=== PATIENT | female | born 1965 | race Caucasian/White ===

== ENCOUNTER 2020-07-24 17:04 | Emergency (ER) | payer BC, SELFPAY ==
--- NOTE | 2020-07-24 17:10 | ED.FEMALEGU ---
HPI - Female Genitourinary General Chief complaint: Urogenital-Female Stated complaint: kidney infection Time Seen by Provider: 07/24/20 17:12 Source: patient and RN notes reviewed Mode of arrival: ambulatory Limitations: no limitations History of Present Illness HPI Narrative: 54-year-old female presents with concern for 2-day history of dysuria, frequency, urgency, low back pain. She denies nausea, vomiting, fever, body aches, abdominal pain. MD elicited complaint: UTI Related Data Home Medications Medication Instructions Recorded Confirmed spironolactone 100 mg tablet 100 mg PO DAILY 01/07/20 07/24/20 Allergies Allergy/AdvReac Type Severity Reaction Status Date / Time Aminoglycosides Allergy Intermediate RASH Verified 04/29/20 09:34 neomycin Allergy Intermediate RASH Verified 04/29/20 09:34 Sulfa (Sulfonamide Allergy Intermediate HIVES Verified 04/29/20 09:34 Antibiotics) sulfamethoxazole Allergy Intermediate HIVES Verified 04/29/20 09:34 bacitracin Allergy Unknown Other Verified 04/29/20 09:34 hydrocortisone Allergy Unknown Other Verified 04/29/20 09:34 polymyxin B Allergy Unknown Other Verified 04/29/20 09:34 sulfamethizole Allergy Unknown Other Verified 04/29/20 09:34 trimethoprim Allergy Unknown Other Verified 04/29/20 09:34 Review of Systems Review of Systems: Narrative: CONSTITUTIONAL: Denies malaise, chills, sweats, or fever. CARDIOVASCULAR: Denies chest pain, palpitations, or edema. RESPIRATORY: Denies cough or dyspnea. GASTROINTESTINAL: Denies abdominal pain, nausea, vomiting, diarrhea, bloody, or mucous stools. GENITOURINARY: Reports dysuria frequency, urgency, flank pain. Denies hematuria. MUSCULOSKELETAL: Reports bilateral low back pain. Denies myalgia. All systems reviewed & are unremarkable except as noted in HPI and below PMFSH Family History Family History Father Patient's father is Carcinoma of colon Family history of diabetes mellitus in first degree relative Family history of heart disease in male family member before age 55 Sibling Patient's brother is in good health Other Diabetes mellitus Hypertension Social History Social History Smoking status: Never smoker Second hand tobacco smoke exposure: No Alcohol intake: current Gender identity (if verbalized by the patient): Female Comments At time of signature, agree with nursing past medical, surgical, social and family history. There is no relevant family history pertinent to the presenting complaint Exam Narrative: Exam Narrative: GENERAL: Well-appearing, well-nourished, and in no acute distress. HEAD: Normocephalic. EYES: PERRLA, conjunctivae clear. NECK: Supple. No lymphadenopathy CHEST: Clear to auscultation. No respiratory distress. HEART: Regular rate and rhythm. ABDOMEN: Soft, nontender upon palpation, nondistended, normal active bowel sounds, no palpable or pulsatile masses, no guarding. No CVA tenderness SKIN: Warm, dry, no rash. NEURO: Alert and oriented x3. PSYCH: Normal mood and affect Course Course Emergency Course: Patient is aware of diagnosis, understands and agrees to treatment plan. Anticipatory guidance given. Patient agrees to follow-up as directed and is aware of reasons to seek care at the emergency department. Portions of this record may have been created with voice recognition software Vital Signs Vital signs: Vital Signs Temperature 98.3 F 07/24/20 17:15 Pulse Rate 105 H 07/24/20 17:15 Respiratory Rate 07/24/20 17:15 Blood Pressure 162/99 H 07/24/20 17:15 Pulse Oximetry 100 07/24/20 17:15 Temperature 98.3 F 07/24/20 17:15 Pulse Rate 105 H 07/24/20 17:15 Respiratory Rate 07/24/20 17:15 Blood Pressure 162/99 H 07/24/20 17:15 Pulse Oximetry 100 07/24/20 17:15 Reviewed. MDM - Female Genitourinary MDM Narrative Medical
[2020-07-24 17:15] VITALS: BP 162/99; PULSE 105; RESP 20; TEMP 36.8; O2SAT 100
== END 2020-07-24 17:22 | disposition home or self-care (01) ==
PROVIDERS: Emergency Provider Nurse Practitioner; PCP Internal Medicine
DX: R30.0 Dysuria (principal); R35.0 Frequency of micturition; R39.15 Urgency of urination; M54.5 Low back pain
CPT/HCPCS: 81003; 87077; 87086; 87088; 87186; 99213; G0463

== ENCOUNTER → 2020-09-21 12:19 | Outpatient (CLI) | payer BC, SELFPAY ==
[2020-09-21 20:43] LABS: SARS-CoV-2 RNA PCR Negative
== END ==
PROVIDERS: PCP Internal Medicine; Visit Provider Internal Medicine
DX: Z20.822 Contact with and (suspected) exposure to COVID-19 (principal); B34.9 Viral infection, unspecified
CPT/HCPCS: C9803; U0003; U0005

== ENCOUNTER 2020-09-21 16:02 | Emergency (ER) | payer BC, SELFPAY ==
[2020-09-21 17:13] VITALS: BP 159/93; PULSE 120; RESP 18; TEMP 36.9; O2SAT 100
[2020-09-21 17:27] LABS: Basophils Absolute Auto 0.1 K/mm3 (0.0-0.1); Basophils Percent Auto 0.4 % (0.2-1.2); Eosinophils Absolute Auto 0.6 K/mm3 (0-0.3); Eosinophils Percent Auto 4.3 % (0-4.4); Hematocrit 45.4 % (37.0-47.0); Hemoglobin 15.2 g/dL (12.0-15.0); Immature Granulocyte Absolute 0.06 K/mm3 (0.00-0.031); Immature Granulocyte Percent A 0.5 % (0-0.5); Lymphocytes Absolute Auto 0.95 K/mm3 (0.9-3.2); Lymphocytes Percent Auto 7.3 % (18.3-44.2); Mean Corpuscular HGB Conc 33.5 g/dl (32-36); Mean Corpuscular Hemoglobin 30.6 pg (26-34); Mean Corpuscular Volume 91.5 fl (80-100); Monocytes Absolute Auto 0.6 K/mm3 (0.1-0.6); Monocytes Percent Auto 4.2 % (2.6-8.5); Neutrophils Absolute Auto 10.8 K/mm3 (1.3-6.7); Neutrophils Percent Auto 83.3 % (45.5-73.1); Platelet Count Result 226 k/mm3 (150-375); Red Blood Count 4.96 M/mm3 (4.2-5.4); Red Cell Distribution Width 12.8 % (11.5-14.5)
[2020-09-21 17:31] LABS: Add Urine Microscopic? YES; Appearance Urine Cloudy (Clear); Bacteria Urine Trace /hpf; Bilirubin Urine Negative (Negative); Blood Urine Negative (Negative); Color Urine Yellow (Yellow); Glucose Urine UA Negative (Negative); Ketones Urine 1+ mg/dL (Negative); Leukocyte Esterase Ur Trace LEU/UL (Negative); Mucus Urine Few /lpf; Nitrate Urine Negative (Negative); Protein Urine 1+ mg/dL (Negative); Squamous Epithelial Cell Urine Many /hpf (Few); WBC Urine 0-3 /hpf
[2020-09-21 17:41] LABS: Alanine Aminotransferase 90 U/L (4-35); Albumin Level 4.5 g/dL (3.5-5.1); Alkaline Phosphatase 104 U/L (38-126); Anion Gap 8 mmol/L (8-16); Aspartate Amino Transferase 82 U/L (14-36); Bilirubin,Total 0.6 mg/dL (0.2-1.3); Blood Urea Nitrogen 9 mg/dL (7-17); Calcium 9.7 mg/dL (8.4-10.2); Carbon Dioxide 27 mmol/L (22-30); Chloride 103 mmol/L (98-107); Estimated CRCL calculation 65 ml/min; Estimated Glomerular Filt Rate > 60; Glucose 110 mg/dL (65-105); Lipase 22 U/L (23-300); Potassium 4.5 mmol/L (3.4-5.0); Sodium 138 mmol/L (137-145)
[2020-09-21 20:47] VITALS: BP 148/62; PULSE 110; RESP 18; O2SAT 100
--- NOTE | 2020-09-21 21:47 | ED.ABDPAIN ---
HPI - Abdominal Pain General Chief Complaint: Abdominal Pain Stated Complaint: ABD Cramping Time Seen by Provider: 09/21/20 21:18 Source: patient Mode of arrival: ambulatory Limitations: no limitations History of Present Illness HPI narrative: A 55-year-old female comes into the emergency department with complaints of left lower quadrant abdominal pain. Patient states that she has had pain like this before and states that it feels like the last time she had colitis. Patient also notes that she has had a history of diverticulitis and that it feels similar. She states that she is not sure what the differences. She does endorse a couple of episodes of diarrhea. Denies any black or bloody stools. Patient states that her pain is a cramping sensation in the left lower quadrant and does not radiate anywhere. She states that she has had subjective fever and chills but has not actually checked her temperature. Related Data Home Medications Medication Instructions Recorded Confirmed spironolactone 100 mg tablet 100 mg PO DAILY 01/07/20 07/24/20 Allergies Allergy/AdvReac Type Severity Reaction Status Date / Time Aminoglycosides Allergy Intermediate RASH Verified 09/21/20 21:06 neomycin Allergy Intermediate RASH Verified 09/21/20 21:06 Sulfa (Sulfonamide Allergy Intermediate HIVES Verified 09/21/20 21:06 Antibiotics) sulfamethoxazole Allergy Intermediate HIVES Verified 09/21/20 21:06 bacitracin Allergy Unknown Other Verified 09/21/20 21:06 hydrocortisone Allergy Unknown Other Verified 09/21/20 21:06 polymyxin B Allergy Unknown Other Verified 09/21/20 21:06 sulfamethizole Allergy Unknown Other Verified 09/21/20 21:06 trimethoprim Allergy Unknown Other Verified 09/21/20 21:06 Review of Systems Review of Systems: Narrative: CONSTITUTIONAL: Denies fever, chills, or sweats. EYES: Denies visual changes, redness, or discharge. ENT: Denies rhinorrhea, congestion, sore throat, or otalgia. CARDIOVASCULAR: Denies chest pain, palpitations, or edema. RESPIRATORY: Denies cough or dyspnea. GASTROINTESTINAL: Denies nausea, vomiting, or diarrhea. Endorses abdominal pain. GENITOURINARY: Denies dysuria or hematuria. SKIN: Denies rash or itching. MUSCULOSKELETAL: Denies back pain, joint pain, or myalgia. NEUROLOGIC: Denies headache, numbness, dizziness, or weakness. PSYCHIATRIC: Denies anxiety or depression. PMFSH Family History Family History Father Patient's father is Carcinoma of colon Family history of diabetes mellitus in first degree relative Family history of heart disease in male family member before age 55 Sibling Patient's brother is in good health Other Diabetes mellitus Hypertension Social History Social History Smoking status: Never smoker Second hand tobacco smoke exposure: No Alcohol intake: current Gender identity (if verbalized by the patient): Female Exam Narrative: Exam Narrative: GENERAL: Well-appearing, well-nourished, and in no acute distress. HEAD: Normocephalic, atraumatic. EYES: PERRLA and EOMI. ENT: Nares clear, no rhinorrhea or epistaxis. Mucous membranes moist. NECK: Supple. No adenopathy or masses. No carotid bruits or JVD CHEST: Clear to auscultation. No respiratory distress. No wheezes rales or rhonchi HEART: Regular rate and rhythm. No murmur heard. Normal peripheral pulses. ABDOMEN: Soft, nondistended, normal active bowel sounds. Tenderness to palpation in the left lower quadrant. EXTREMITIES: Normal range of motion. No edema. SKIN: Warm, dry, no rash. NEURO: No focal deficits. Alert and oriented x3. PSYCH: Normal mood and affect. Course Reevaluation(s) Reevaluation #1: Patient resting comfortably at this time, provided care update. Inquired to the patient about her pain, she states that it does feel somewhat better. We discussed her work-up and where to go from he
[2020-09-21] MEDS: AMOXICILLIN/CLAVULANATE K 875-125 MG TAB 1 TABLET PO (22:20)
[2020-09-21] MEDS: KETOROLAC 15 MG/ML VIAL (*BKC) IV PUSH (22:20)
[2020-09-21 23:50] VITALS: BP 130/86; PULSE 98; RESP 99; TEMP 36.6; O2SAT 99
== END 2020-09-21 23:53 | disposition home or self-care (01) ==
PROVIDERS: Emergency Medicine; Emergency Provider Emergency Medicine; PCP Internal Medicine
DX: K57.92 Diverticulitis of intestine, part unspecified, without perforation or abscess without bleeding (principal)
CPT/HCPCS: 36415; 80053; 81001; 81025; 83690; 85025; 96374; 99284; A9270; J1885

== ENCOUNTER 2021-02-14 11:48 | Emergency (ER) | payer BC, SELFPAY ==
--- NOTE | ~2021-02-14 | XR_ITS ---
XR hand RT min 3V DATE: 02/14/2021 13:03 INDICATION: Right hand pain TECHNIQUE: 3 views COMPARISON: None FINDINGS: No recent fracture or dislocation, periosteal reaction or bone destruction, erosive change, joint space narrowing. No chondrocalcinosis. IMPRESSION: No significant abnormality Reviewed, dictated and finalized at location A. IMPRESSION: No significant abnormality
[2021-02-14 12:42] VITALS: BP 131/87; PULSE 72; RESP 18; TEMP 36.7; O2SAT 100
--- NOTE | 2021-02-14 13:45 | ED.UPPEXIN ---
HPI - Extremity Injury (Upper) General Chief Complaint: Extremity Injury, Upper Stated Complaint: Swollen finger on Rt hand Source: patient and RN notes reviewed Mode of arrival: ambulatory History of Present Illness HPI narrative: This is a 55-year-old woman that presented to urgent care with a right swollen ring finger. According to patient approximately 3 to 4 days ago she developed swelling and tenderness to her right ring finger patient denies any injury. She also notes that she has skin rash which she believes is poison jasmin that she obtained from her pets rubbing jumping on her. This rash appears to be in her upper and lower extremities she did note that she was using hydrocortisone it is noted that she has allergy to it she does deny that allergy. The patient denies SOB, CP, palpitation, extremity numbness, lightheadedness, dizziness, constipation, diarrhea, chills, or fever. MD complaint: injury to: right Related Data Home Medications Medication Instructions Recorded Confirmed spironolactone 100 mg tablet 100 mg PO DAILY 01/07/20 11/11/20 Allergies Allergy/AdvReac Type Severity Reaction Status Date / Time Aminoglycosides Allergy Intermediate RASH Verified 11/11/20 10:40 neomycin Allergy Intermediate RASH Verified 11/11/20 10:40 Sulfa (Sulfonamide Allergy Intermediate HIVES Verified 11/11/20 10:40 Antibiotics) sulfamethoxazole Allergy Intermediate HIVES Verified 11/11/20 10:40 bacitracin Allergy Unknown Other Verified 11/11/20 10:40 hydrocortisone Allergy Unknown Other Verified 11/11/20 10:40 polymyxin B Allergy Unknown Other Verified 11/11/20 10:40 sulfamethizole Allergy Unknown Other Verified 11/11/20 10:40 trimethoprim Allergy Unknown Other Verified 11/11/20 10:40 Review of Systems Review of Systems: Narrative: A 14 organ system Review of Systems was performed and pertinent positives included in the HPI, otherwise remaining ROS is negative. All systems reviewed & are unremarkable except as noted in HPI and below PMFSH Family History Family History Father Patient's father is Carcinoma of colon Family history of diabetes mellitus in first degree relative Family history of heart disease in male family member before age 55 Sibling Patient's brother is in good health Other Diabetes mellitus Hypertension Social History Social History Smoking status: Never smoker Second hand tobacco smoke exposure: No Alcohol intake: current Gender identity (if verbalized by the patient): Female Exam Narrative: Exam Narrative: GENERAL: This is a well-nourished, well-developed patient, in no apparent distress. HEAD: normocephalic, atraumatic. EYES: PERRL. Sclera clear/white. Vision is grossly intact. EARS: External ears normal, auditory canals clear and without drainage, TMs normal without perforation. Hearing grossly intact. NOSE: External nose normal with no obvious nasal discharge, nares without redness, no rhinorrhea. THROAT: Mucous membranes moist, posterior pharynx clear. NECK: Neck supple, non-tender without lymphadenopathy, masses or thyromegaly. CARDIOVASCULAR: Regular rate and rhythm without murmurs, gallops, or rubs. RESPIRATORY: Clear to auscultation. Breath sounds equal bilaterally. No wheezes, rales, or rhonchi. GASTROINTESTINAL: Abdomen soft, non-tender, nondistended. Bowel sounds are active. No hepato-splenomegaly, or palpable masses. No guarding. SKIN: Several erythematous swollen areas to the upper and lower extremity NEURO: awake, alert, and oriented to person, place and time. There were no obvious focal neurologic abnormalities. Steady gait EXTREMITIES: Normal range of motion. Right ring finger edematous and tender to touch full range of motion. No calf tenderness. Negative Homans sign bilaterally. BACK: Nontender without deformity or crepitance. No flank tenderness. Cour
== END 2021-02-14 14:02 | disposition home or self-care (01) ==
PROVIDERS: Emergency Provider Nurse Practitioner; PCP Internal Medicine
DX: R21 Rash and other nonspecific skin eruption (principal); M10.9 Gout, unspecified
CPT/HCPCS: 73130; 99213; G0463

== ENCOUNTER → 2021-05-31 13:09 | Outpatient (CLI) | payer BC, SELFPAY ==
--- NOTE | ~2021-05-31 | MM_ITS ---
EXAMINATION: MM screening indra BI w gregoria HISTORY: Screening TECHNIQUE: Craniocaudal and mediolateral oblique 3-D tomosynthesis images were obtained and synthetic 2-D images were generated. CAD analysis was submitted and interpreted. COMPARISON: Comparison to multiple prior studies sequentially, with oldest reviewed study dated 01/2014. BREAST PARENCHYMAL COMPOSITION: There are scattered areas of fibroglandular density. FINDINGS: Bilateral breast asymmetries are stable. There is no evidence of suspicious mass, calcifica tion, or architectural distortion to suggest malignancy in either breast. There has been no suspiciou s interval change. IMPRESSION: 1. No mammographic evidence of malignancy. 2. Recommend routine screening mammography in one year. BI-RADS Category 2: Benign finding(s). Reviewed, dictated and finalized at location A.
== END ==
PROVIDERS: PCP Internal Medicine; Visit Provider Obstetrics & Gynecology
DX: Z12.31 Encounter for screening mammogram for malignant neoplasm of breast (principal)
CPT/HCPCS: 77063; 77067

== ENCOUNTER 2021-09-06 13:15 | Emergency (ER) | payer BC, SELFPAY ==
--- NOTE | ~2021-09-06 | XR_ITS ---
XR chest 2V DATE: 09/06/2021 13:41 INDICATION: Productive cough for one week TECHNIQUE: 2 views COMPARISON: None FINDINGS: Prominent reverse S shaped thoracolumbar scoliosis. No pulmonary infiltrate or consolidation, pleural effusion or pulmonary vascular congestion or pneumo thorax is detected. Normal heart size. No hilar or mediastinal enlargement. Small hiatal hernia is suggested. IMPRESSION: No active cardiac pulmonary disease Prominent reverse S shaped thoracic and lumbar scoliosis Small hiatal hernia Reviewed, dictated and finalized at location A. [employer]
--- NOTE | 2021-09-06 13:23 | ED.URI ---
HPI - URI/Sore Throat General Chief Complaint: Upper Respiratory Infection Stated Complaint: cough Source: patient, RN notes reviewed and old records reviewed Mode of arrival: ambulatory Limitations: no limitations History of Present Illness HPI Narrative: 55 yo female presents to the [facility] with C/O a cough. Patient states that she has had a cough for over a week. Has tried [id number], DayQuil, NyQuil, Mucinex, throat lozenges, products with no relief. Denies fevers, chest pain, abdominal pain. MD elicited complaint: cough Related Data Home Medications Medication Instructions Recorded Confirmed spironolactone 100 mg tablet 100 mg PO DAILY 01/07/20 09/06/21 Allergies Allergy/AdvReac Type Severity Reaction Status Date / Time Aminoglycosides Allergy Intermediate RASH Verified 07/04/21 14:31 neomycin Allergy Intermediate RASH Verified 07/04/21 14:31 Sulfa (Sulfonamide Allergy Intermediate HIVES Verified 09/06/21 13:33 Antibiotics) sulfamethoxazole Allergy Intermediate HIVES Verified 07/04/21 14:31 bacitracin Allergy Mild Rash Verified 07/04/21 14:31 hydrocortisone Allergy Mild Rash Verified 07/04/21 14:31 polymyxin B Allergy Mild Rash Verified 07/04/21 14:31 sulfamethizole Allergy Mild Rash Verified 07/04/21 14:31 trimethoprim Allergy Mild Rash Verified 07/04/21 14:31 Review of Systems Review of Systems: All systems reviewed & are unremarkable except as noted in HPI and below Constitutional: Constitutional: Reports no additional constitutional complaints, Denies chills, Denies fever(s) and Denies headache(s) Eyes: Eyes: Reports no additional eye complaints ENT: Reports as per HPI, Denies vertigo, Denies dizziness, Denies headache(s), Denies nasal congestion and Denies sore throat Cardiovascular: Cardiovascular: Reports no additional cardiovascular complaints, Denies chest pain, Denies syncope, Denies rapid heart rate and Denies dyspnea Respiratory: Respiratory: Reports as per HPI, Reports cough, Denies dyspnea and Denies wheezing Gastrointestinal: Gastrointestinal: Reports no additional gastrointestinal complaints, Denies abdominal pain, Denies diarrhea, Denies nausea and Denies vomiting Musculoskeletal: Musculoskeletal: Reports no additional musculoskeletal complaints and Denies numbness Integumentary/Breasts: Skin/Breast: Reports system reviewed and no additional complaints, except as docu Neurologic: Reports system reviewed and no additional complaints, except as documented, Denies vertigo, Denies dizziness, Denies syncope, Denies headache(s), Denies focal weakness and Denies numbness Psychiatric: Psychiatric: Reports no additional psychiatric complaints Allergic/Immunologic: Allergic/Immunologic: Reports no additional allergic/immunologic complaints and Denies wheezing PMFSH Past Medical History Medical History (Updated 09/06/21 @ 13:35 by Yuki Church) Anxiety and depression Hyperlipidemia Family History Family History Father Patient's father is Carcinoma of colon Family history of diabetes mellitus in first degree relative Family history of heart disease in male family member before age 55 Sibling Patient's brother is in good health Other Diabetes mellitus Hypertension Social History Social History Smoking status: Former smoker Second hand tobacco smoke exposure: No Alcohol intake: current Gender identity (if verbalized by the patient): Female Comments At the time of my signature, I reviewed and agree with the nursing past medical, surgical, social, and family history. There is no relevant family history pertinent to the patient complaint. Exam Const: General: cooperative, no acute distress, well developed, alert and ill appearing acutely (Mild) Nutritional Appearance: well nourished Orientation/consciousness: patient oriented x3 Limitations: no limitations
[2021-09-06 13:25] VITALS: BP 139/92; PULSE 108; RESP 18; TEMP 37; O2SAT 100
== END 2021-09-06 14:00 | disposition home or self-care (01) ==
PROVIDERS: Emergency Provider Nurse Practitioner; PCP Internal Medicine
DX: J40 Bronchitis, not specified as acute or chronic (principal); Z87.891 Personal history of nicotine dependence; E78.5 Hyperlipidemia, unspecified
CPT/HCPCS: 71046; 99213; G0463

== ENCOUNTER 2022-04-09 00:24 | Day surgery (SDC) | payer BC, SELFPAY ==
[2022-03-27 09:00] VITALS: BMI 25.9
--- NOTE | 2022-04-09 06:43 | WPDANESEPPF ---
Anes - Initial Pre Proc Eval Procedure: Operation Date: 04/09/22 08:30 Proposed Procedures p Screening Colonoscopy - Len Chávez MD Date/Time: 04/09/22 06:43 Surgeon: Len Chávez MD Pre Op Diagnosis: neoplasm, hx of colon polyps, family hx colon ca Patient Data Age: 56 Gender: F Height: 1.68 m Weight: 73 kg Allergies Allergy/AdvReac Type Severity Reaction Status Date / Time Aminoglycosides Allergy Intermediate RASH Verified 04/09/22 07:33 neomycin Allergy Intermediate RASH Verified 04/09/22 07:33 Sulfa (Sulfonamide Allergy Intermediate HIVES Verified 04/09/22 07:33 Antibiotics) sulfamethoxazole Allergy Intermediate HIVES Verified 04/09/22 07:33 bacitracin Allergy Mild Rash Verified 04/09/22 07:33 hydrocortisone Allergy Mild Rash Verified 04/09/22 07:33 polymyxin B Allergy Mild Rash Verified 04/09/22 07:33 sulfamethizole Allergy Mild Rash Verified 04/09/22 07:33 trimethoprim Allergy Mild Rash Verified 04/09/22 07:33 Home Medications Medication Instructions Recorded Confirmed Type atorvastatin 20 mg tablet 20 mg PO DAILY #90 tabs 10/26/21 03/27/22 Rx spironolactone 100 mg tablet 100 mg PO DAILY #90 tabs 11/22/21 03/27/22 Rx venlafaxine 75 mg capsule,extended 75 mg PO DAILY #90 caps 03/05/22 03/27/22 Rx release 24 hr Patient hx anesthesia problems: none Family hx anesthesia problems: none Results Review: All pre-operative results and documents have been reviewed as part of the pre-operative evaluation. [facility] Past Medical History Medical History Anxiety and depression Hyperlipidemia Family History Family History Father Patient's father is Carcinoma of colon Family history of diabetes mellitus in first degree relative Family history of heart disease in male family member before age 55 Sibling Patient's brother is in good health Other Diabetes mellitus Hypertension Social History Social History Smoking status: Never smoker Second hand tobacco smoke exposure: No Alcohol intake: never Substance use: never Substance use type: does not use Living arrangements: with family Gender identity (if verbalized by the patient): Female Spiritual care concerns: No Anes - Eval Final PreProcedure Day of Procedure 04/09/22 06:43 Patient weight: overweight Heart: regular rate and rhythm Lungs: clear to auscultation Airway: Mallampati scale class II Neurological: alert and oriented Last oral intake: >/= 8 hours ASA classification: II Emergent: no Anesthetic plan: proceed Anesthesia type and monitoring: general GIVS and standard monitoring Results Review: All pre-operative results and documents have been reviewed as part of the pre-operative evaluation. Informed Consent: The patient's anesthetic plan and its attendant risks and benefits were discussed with the patient/family/POA. Questions were solicited and answers provided to the satisfaction of the patient/family/POA.
[2022-04-09 07:34] VITALS: BP 146/81; PULSE 82; RESP 17; TEMP 36.6; O2SAT 100
[2022-04-09] MEDS: LACTATED RINGERS 1,000 ML 150 ML IV CONT (07:45)
--- NOTE | 2022-04-09 07:56 | PM.IMHP ---
H&P: HPI History of Present Illness Date/Time: 04/09/22 07:56 Chief Complaint: Family history of colon cancer, personal history of colon polyps. Narrative: This is a 56-year-old white female patient presents for screening colonoscopy. Family history is significant that her father had colon cancer. Patient herself has a prior history colon polyps. Patient's most recent colonoscopy was several years ago. she reports his current weight appetite and bowel movements are normal. She denies abdominal pain. She has had no bleeding. She presents today for screening colonoscopy. Review of Systems Review of Systems: Review of systems noncontributory. [facility] Past Medical History Medical History Anxiety and depression Hyperlipidemia Family History Family History Father Patient's father is Carcinoma of colon Family history of diabetes mellitus in first degree relative Family history of heart disease in male family member before age 55 Sibling Patient's brother is in good health Other Diabetes mellitus Hypertension Social History Social History Smoking status: Never smoker Second hand tobacco smoke exposure: No Alcohol intake: never Substance use: never Substance use type: does not use Living arrangements: with family Gender identity (if verbalized by the patient): Female Spiritual care concerns: No Meds Home Medications and Allergies Home Medications Medication Instructions Recorded Confirmed Type atorvastatin 20 mg tablet 20 mg PO DAILY #90 tabs 10/26/21 03/27/22 Rx spironolactone 100 mg tablet 100 mg PO DAILY #90 tabs 11/22/21 03/27/22 Rx venlafaxine 75 mg capsule,extended 75 mg PO DAILY #90 caps 03/05/22 03/27/22 Rx release 24 hr Allergies Allergy/AdvReac Type Severity Reaction Status Date / Time Aminoglycosides Allergy Intermediate RASH Verified 04/09/22 07:33 neomycin Allergy Intermediate RASH Verified 04/09/22 07:33 Sulfa (Sulfonamide Allergy Intermediate HIVES Verified 04/09/22 07:33 Antibiotics) sulfamethoxazole Allergy Intermediate HIVES Verified 04/09/22 07:33 bacitracin Allergy Mild Rash Verified 04/09/22 07:33 hydrocortisone Allergy Mild Rash Verified 04/09/22 07:33 polymyxin B Allergy Mild Rash Verified 04/09/22 07:33 sulfamethizole Allergy Mild Rash Verified 04/09/22 07:33 trimethoprim Allergy Mild Rash Verified 04/09/22 07:33 Vital Signs Vital Signs - 24 hr 04/09/22 07:34 Temperature 97.8 F Pulse Rate 82 Respiratory Rate 17 Blood Pressure 146/81 H Pulse Oximetry 100 Oxygen Delivery Room Air Exam Narrative: ysical exam reveals patient to be alert. Vital signs stable. HEENT exam is unremarkable. Patient is anicteric. Lungs are clear to auscultation and percussion. Heart is without murmur or extra sounds. Abdominal exam bowel sounds present soft nontender with no organomegaly. Digital external rectal exam is normal. Assessment and Plan Assessment and plan (1) History of colon polyps: Code(s): Z86.010 - Personal history of colonic polyps Status: Acute Assessment and Plan: Patient has had a prior history of colon polyps. Would recommend follow-up colonoscopy at 5 year intervals. Further recommendations may be given after colonoscopy. (2) Family history of colon cancer in father: Code(s): Z80.0 - Family history of malignant neoplasm of digestive organs Status: Acute Assessment and Plan: Patient's father had colon cancer. Plan for surveillance colonoscopy at 5 year intervals in the future.
[2022-04-09 08:47] VITALS: BP 120/86; PULSE 92; RESP 28; O2SAT 100
[2022-04-09 08:57] VITALS: BP 118/72; PULSE 79; RESP 19; O2SAT 100
[2022-04-09 09:07] VITALS: BP 119/88; PULSE 70; RESP 18; O2SAT 100
== END 2022-04-09 09:18 | disposition home or self-care (01) ==
PROVIDERS: PCP Internal Medicine; Visit Provider Internal Medicine Gastroenterology
PROC: 0DJD8ZZ Inspection of Lower Intestinal Tract, Via Natural or Artificial Opening Endoscopic (ICD-10-PCS; CPT 45378; principal; 2022-04-09 08:30)
DX: Z12.11 Encounter for screening for malignant neoplasm of colon (principal); K64.8 Other hemorrhoids; K57.30 Diverticulosis of large intestine without perforation or abscess without bleeding; Z80.0 Family history of malignant neoplasm of digestive organs; F41.9 Anxiety disorder, unspecified; F32.A Depression, unspecified; E78.5 Hyperlipidemia, unspecified
CPT/HCPCS: 45378; J2405; J2704; J7120

== ENCOUNTER 2023-04-15 11:38 | Inpatient (IN) | payer MEDICAID, SELFPAY ==
--- NOTE | ~2023-04-15 | CT_ITS ---
CT of the Abdomen and Pelvis: Indication: Abdominal pain Technique: 2.5 mm axial scans were obtained through the abdomen and pelvis following intravenous adm inistration of 100 cc of Omnipaque 350. Dose reduction technique was used on this scan by utilizing a utomated exposure control and iterative reconstruction technique. The dose-length product (DLP) was 4 45.22 mGy-cm. COMPARISON: 12/10/2011 Findings: Scans through the lung bases-a left basilar scarring or atelectasis. Adfuw-te-ragtotke hia yessica hernia present. The liver, spleen, pancreas, adrenals and kidneys are within normal limits. Small gallstones are pres ent. No evidence of aortic aneurysm. No lymphadenopathy. No bowel obstruction or bowel wall thickening. There is no evidence to suggest acute appendicitis. Images through the pelvis were performed. Urinary bladder unremarkable. No adnexal mass seen. Impression: Cholelithiasis. Small to moderate hiatal hernia. Reviewed, dictated and finalized at [facility]. Impression: Cholelithiasis. Small to moderate hiatal hernia.
--- NOTE | ~2023-04-15 | NM_ITS ---
EXAMINATION: NM hepatobiliary wo pharm DATE: 04/18/2023 10:25 INDICATION: Cholelithiasis and abdominal pain. COMPARISON: None. TECHNIQUE: I 0.5 mCi Tc-99m mebrofenin (Choletec) was administered intravenously. Scintigraphic imag es of the abdomen were obtained for one hour. At the 1 hour time point, the patient drank 8 oz Ensure , and imaging was continued for 60 minutes. Gallbladder ejection fraction was calculated by the techn ologist. FINDINGS: There is normal clearance of radiotracer from the blood pool. There is homogeneous tracer u ptake by the liver. Activity progresses to the bowel and gallbladder. The gallbladder ejection fract ion (GBEF) is 21%. Note that with this technique, normal GBEF >= 33%. IMPRESSION: 1. Decreased gallbladder ejection fraction of 21% consistent with gallbladder dysfunction or chronic cholecystitis in the appropriate clinical setting. Reviewed, dictated and finalized at location A.
--- NOTE | ~2023-04-15 | US_ITS ---
EXAMINATION: US abdomen limited DATE: 04/15/2023 13:29 INDICATION: Epigastric abdominal pain TECHNIQUE: Multiple grayscale and Doppler ultrasound images of the abdomen were obtained. COMPARISON: CT dated 12/10/2011 FINDINGS: The majority pancreas is obscured. The small portion visualized pancreatic body appears normal. Liver has normal echogenicity and contour, with a smooth surface. No liver lesion identified. No intrahepa tic biliary duct dilation suspected. Portal venous flow was seen in the hepatopetal, normal direction and has normal Doppler waveform. There are few echogenic and shadowing gallstones in the dependent a spect of the otherwise normal-appearing gallbladder. Sonographic Badillo sign was reported as negative by the pump tester.The common bile duct measures 4-5 mm diameter which is within normal limits. IMPRESSION: 1. Cholelithiasis. No gallbladder dilation, wall thickening or sonographic Baidllo's sign to suggest a cute cholecystitis. Reviewed, dictated and finalized at location A. IMPRESSION: 1. Cholelithiasis. No gallbladder dilation, wall thickening or sonographic Murp hy's sign to suggest acute cholecystitis.
--- NOTE | ~2023-04-15 | XR_ITS ---
EXAMINATION: XR chest 2V DATE: 04/15/2023 13:50 INDICATION: Epigastric abdominal pain TECHNIQUE: PA and lateral views of the chest are obtained. COMPARISON: 09/06/2021 FINDINGS: The lungs are free of acute opacities. No pleural effusion or pneumothorax. The heart size is normal. There is a small sliding hiatal hernia. There is mild thoracic spondylosis. Thoracic dextr oscoliosis is noted. IMPRESSION: 1. Small sliding hiatal hernia. Reviewed, dictated and finalized at location B.
[2023-04-15 11:50] VITALS: BP 130/84; PULSE 85; RESP 20; TEMP 36.6; O2SAT 100
[2023-04-15 12:11] LABS: Basophils Absolute Auto 0.1 K/mm3 (0.0-0.1); Basophils Percent Auto 0.7 % (0.2-1.2); Eosinophils Absolute Auto 0.2 K/mm3 (0-0.3); Eosinophils Percent Auto 2.8 % (0-4.4); Hematocrit 37.5 % (37.0-47.0); Hemoglobin 12.3 g/dL (12.0-15.0); Immature Granulocyte Absolute 0.02 K/mm3 (0.00-0.031); Immature Granulocyte Percent A 0.3 % (0-0.5); Lymphocytes Absolute Auto 2.08 K/mm3 (0.9-3.2); Lymphocytes Percent Auto 28.7 % (18.3-44.2); Mean Corpuscular HGB Conc 32.8 g/dl (32-36); Mean Corpuscular Volume 91.5 fl (80-100); Mean Platelet Volume 8.7 fl (7.4-10.4); Monocytes Absolute Auto 0.5 K/mm3 (0.1-0.6); Monocytes Percent Auto 7.3 % (2.6-8.5); Neutrophils Absolute Auto 4.4 K/mm3 (1.3-6.7); Neutrophils Percent Auto 60.2 % (45.5-73.1); Platelet Count Result 178 k/mm3 (150-375); Red Cell Distribution Width 12.6 % (11.5-14.5); White Blood Count 7.2 K/mm3 (4.5-10.0)
[2023-04-15 12:21] LABS: Alanine Aminotransferase 69 U/L (6-35); Albumin Level 4.1 g/dL (3.5-5.1); Alkaline Phosphatase 134 U/L (38-126); Anion Gap 6 mmol/L (8-16); Aspartate Amino Transferase 40 U/L (14-36); Bilirubin,Total 0.5 mg/dL (0.2-1.3); Blood Urea Nitrogen 4 mg/dL (7-17); Carbon Dioxide 30 mmol/L (22-30); Chloride 99 mmol/L (98-107); Estimated CRCL calculation 82 ml/min; Estimated Glomerular Filt Rate > 60; Glucose 101 mg/dL (65-110); Lipase 36 U/L (23-300); Potassium 3.8 mmol/L (3.4-5.0); Sodium 135 mmol/L (137-145)
[2023-04-15 12:23] LABS: Appearance Urine Cloudy (Clear); Bacteria Urine None Seen /hpf; Bilirubin Urine Negative (Negative); Blood Urine Negative (Negative); Color Urine Yellow (Yellow); Glucose Urine UA Negative (Negative); Ketones Urine 1+ mg/dL (Negative); Leukocyte Esterase Ur 2+ LEU/UL (Negative); Nitrate Urine Negative (Negative); Non Pathogenic Casts 0-2; Protein Urine Negative (Negative); RBC Urine 0-2 /hpf (0-2); Specific Grav Ur 1.018 (1.001-1.035); Squamous Epithelial Cell Urine Occasional /hpf (Few); WBC Urine 51-100 /hpf
[2023-04-15 12:25] LABS: Atypical Lymphocytes Present; Platelet Estimate Adequate (Adequate); Schistocytes None Seen (NORMAL)
[2023-04-15 12:28] LABS: Add Urine Microscopic? YES
--- NOTE | 2023-04-15 12:35 | ECG_ITS ---
Measurements Intervals [place] Rate: 75 P: 31 PA: 137 QRS: 11 QRSD: 99 T: 56 QT: 366 QTc: 411 Interpretive Statements SINUS RHYTHM BORDERLINE T WAVE ABNORMALITY- ANTERIOR LEADS BASELINE ARTIFACT- II, III, AVF BORDERLINE ECG NO PREVIOUS ECG AVAILABLE FOR COMPARISON Electronically Signed On 04-15-2023 12:52:01 CDT by Ziyad Grace D.O.
[2023-04-15] MEDS: FAMOTIDINE 20 MG/2 ML VIAL IV PUSH (13:04)
[2023-04-15] MEDS: BELLADONNA ALK/PHENOB ELIX 10 ML, MAG HYDROX/ALUMINUM HYD/SIMETH 30 ML, LIDOCAINE HCL 2... PO (13:04)
[2023-04-15 13:23] LABS: Lactic Acid Reflex 0.8 mmol/L (0.7-2.0)
[2023-04-15 13:35] LABS: Troponin I < 0.012 ng/mL (0.000-0.034)
[2023-04-15] MEDS: MORPHINE SULFATE (*CRX) 4 MG/ML INJ IV PUSH ×2 (14:09→15:37)
--- NOTE | 2023-04-15 15:23 | ED.ABDPAIN ---
HPI - Abdominal Pain General Chief Complaint: Abdominal Pain Stated Complaint: Abd pain Time Seen by Provider: 04/15/23 12:15 History of Present Illness HPI narrative: This is a 57-year-old female, with past history of hyperlipidemia and hypertension, status post gastric bypass, who presents emergency department complaining of epigastric abdominal pain for the past 4 days. He describes the pain as dull, constant, rated 6-7/10 without radiation. She denies known aggravating or alleviating factors. The patient states she was seen twice previously with imaging and labs done without an obvious cause. Related Data Home Medications Medication Instructions Recorded Confirmed atorvastatin 20 mg tablet 20 mg PO QNOON 04/15/23 04/15/23 spironolactone 100 mg tablet 100 mg PO QNOON 04/15/23 04/15/23 venlafaxine 75 mg capsule,extended 75 mg PO QNOON 04/15/23 04/15/23 release 24 hr Allergies Allergy/AdvReac Type Severity Reaction Status Date / Time Aminoglycosides Allergy Intermediate RASH Verified 04/15/23 17:46 neomycin Allergy Intermediate RASH Verified 04/15/23 17:46 Sulfa (Sulfonamide Allergy Intermediate HIVES Verified 04/15/23 17:46 Antibiotics) sulfamethoxazole Allergy Intermediate HIVES Verified 04/15/23 17:46 bacitracin Allergy Mild Rash Verified 04/15/23 17:46 hydrocortisone Allergy Mild Rash Verified 04/15/23 17:46 nitrofurantoin Allergy Mild Nausea Verified 04/15/23 17:46 [From Macrobid] polymyxin B Allergy Mild Rash Verified 04/15/23 17:46 sulfamethizole Allergy Mild Rash Verified 04/15/23 17:46 trimethoprim Allergy Mild Rash Verified 04/15/23 17:46 Review of Systems Review of Systems: CONSTITUTIONAL: Denies fever, chills, or sweats. CARDIOVASCULAR: Denies chest pain, palpitations, or edema. RESPIRATORY: Denies cough or dyspnea. GASTROINTESTINAL: Epigastric abdominal pain denies nausea, vomiting, or diarrhea. GENITOURINARY: Denies dysuria or hematuria. SKIN: Denies rash or itching. MUSCULOSKELETAL: Denies back pain, joint pain, or myalgia. NEUROLOGIC: Denies headache, numbness, dizziness, or weakness. PSYCHIATRIC: Denies anxiety or depression. [facility] Past Medical History Medical History (Updated 04/15/23 @ 19:52 by Malorie Anglin PA-C) Anemia Anxiety and depression Diverticulitis Hiatal hernia Hyperlipidemia Surgical History Surgical History (Updated 04/15/23 @ 19:50 by Malorie Anglin PA-C) History of tubal ligation Status post repair of paraesophageal diaphragmatic hernia Family History Family History Father Family history of heart disease in male family member before age 55 Family history of diabetes mellitus in first degree relative Patient's father is Carcinoma of colon Sibling Patient's brother is in good health Fibromyalgia Social History Social History (Updated 04/15/23 @ 19:51 by Malorie Anglin PA-C) Social History: Surrogate medical decision maker: Marce Blue, mother. Code status: Full code. Smoking status: Never smoker Second hand tobacco smoke exposure: No Alcohol intake: current Alcohol use details: Alcohol on the weekends, sometimes in excess. Substance use: never Substance use type: does not use Lack of Transportation: No Lack of Food: Never True Current Housing: I Have Housing Concerned About Future Housing: No Difficulty Paying Gas/Electric Bills: No Difficulty Paying for Meds: No Currently Unemployed: No Education: Associate Degree Difficulty w/ Childcare or Family Care: No Living arrangements: with family Spiritual care concerns: No Exam Narrative: GENERAL: Well-developed, well-nourished, appears uncomfortable HEAD: Normocephalic, atraumatic. EYES: PERRLA and EOMI. ENT: Nares clear, no rhinorrhea or epistaxis. Mucous membranes moist. Oropharynx without tonsillar hypertrophy exudate or other lesions. CHEST: Clear to auscultation
[2023-04-15 17:00] VITALS: PULSE 68; RESP 18; O2SAT 97
[2023-04-15 17:27] VITALS: BP 145/85; PULSE 93; RESP 18; TEMP 35.9; O2SAT 100
[2023-04-15] MEDS: SODIUM CHLORIDE 0.9% IV 1,000 ML 125 ML IV CONT (17:35)
[2023-04-15 17:42] VITALS: BMI 25.4
--- NOTE | 2023-04-15 17:44 | ADMGEN ---
This patient, Anabelle Chan, was admitted to [facility] Surg Room 300-01. Patient/family oriented to hospital policies and general routines including ID bracelet, bed and alarms, visiting hours, pain management, procedures, bathroom and other care routines, personal items, smoking policy, room service/diet, and visiting hours. Information on how to activate the Rapid Response Team has been discussed. Patient/Family are encouraged to report perceived risks to care and to ask questions if they do not understand what they are told or what they should do.
--- NOTE | 2023-04-15 17:55 | PM.IMHP ---
H&P: HPI History of Present Illness Date/Time: 04/15/23 16:30 Chief Complaint: Abdominal pain. Narrative: This is a 57-year-old female with history of periesophageal hernia repair requiring 4 separate surgery due to complications, diverticulitis, hyperlipidemia, depression, and anxiety who presented to the emergency department via private vehicle from home for evaluation of abdominal pain. The patient provides the following history. For the last 4 days or so she has had pain in the upper abdomen and epigastric region associated with nausea. She describes a constant, dull but significant aching discomfort without significant radiation. She has not noticed any aggravating or alleviating factors and states that is not made better or worse with food. Her appetite has not been great however and she has not had much to eat for 3 days. Her last bowel movement was on Saturday and was normal for her. She also reports a subjective fever in addition to nausea. She has not had any vomiting. She was seen emergency department [facility] last night at which time she reportedly had a negative workup including a negative CT scan. Her symptoms have not improved and she came into this facility for evaluation. Vital signs were stable on arrival. Labs were pretty unremarkable with the only outlier is being a sodium of 135, AST 40, ALT 69, and alkaline phosphatase 134. Urine was positive for 1+ ketones, 2+ leukocyte esterase, 51 to 100 WBCs; no bacteria were seen on microscopy. Right upper quadrant ultrasound showed cholelithiasis without other concerning findings. CT of the abdomen and pelvis showed cholelithiasis and a small to moderate hiatal hernia. In the ED she was treated with famotidine, morphine, ondansetron, and a GI cocktail. Unfortunately she continues to have ongoing cramping pain and she is being admitted in this setting for further evaluation. She has not had a fever for couple of days and denies headache, sinus congestion, cough, hematemesis, melena, and hematochezia. She has no history of peptic ulcers. Her symptoms are not similar to GERD or diverticulitis. She has known cholelithiasis but they have never caused her any problems. She drinks 1 cup of coffee a day. She drinks alcohol on the weekends, sometimes heavily. Of note she is currently on Keflex for urinary tract infection. Review of Systems Review of Systems: Twelve systems were reviewed and are negative except for as per HPI. [facility] Past Medical History Medical History (Updated 04/16/23 @ 16:20 by Malorie Anglin PA-C) Anemia Anxiety and depression Diverticulitis Hiatal hernia Hyperlipidemia Surgical History Surgical History History of tubal ligation Status post repair of paraesophageal diaphragmatic hernia paraesophageal hernia repair with placement of gastrostomy tube in 2011. Patient reports a total of 5 surgeries in regards to her hiatal hernia. She had a laparoscopic hiatal hernia repair with Sophia fundoplication in 2016 at [place] complicated by acute recurrence requiring takeback for repair of disruption of her hiatal closure. Family History Family History Father Family history of heart disease in male family member before age 55 Family history of diabetes mellitus in first degree relative Patient's father is Carcinoma of colon Sibling Patient's brother is in good health Fibromyalgia Social History Social History Social History: Surrogate medical decision maker: Marce Blue, mother. Code status: Full code. Smoking status: Never smoker Second hand tobacco smoke exposure: No Alcohol intake: current Alcohol use details: Alcohol on the weekends, sometimes in excess. Substance use: never Substance use type: does not use Lack of Transportation: No [place]
[2023-04-15] MEDS: VENLAFAXINE HCL XR 75 MG CAP.ER.24H PO (18:20)
[2023-04-15] MEDS: MORPHINE SULFATE (*CRX) 2 MG/ML INJ IV PUSH (20:26)
[2023-04-15] MEDS: PANTOPRAZOLE SODIUM IV 40 MG VIAL IV PUSH (20:44)
[2023-04-15 22:00] VITALS: BP 152/82; PULSE 95; RESP 18; TEMP 37.8; O2SAT 99
[2023-04-16] MEDS: MORPHINE SULFATE (*CRX) 2 MG/ML INJ IV PUSH ×5 (00:28→20:27)
[2023-04-16] MEDS: SODIUM CHLORIDE 0.9% IV 1,000 ML 125 ML IV CONT (00:32)
[2023-04-16 06:00] VITALS: BP 136/67; PULSE 83; RESP 16; TEMP 37.2; O2SAT 96
[2023-04-16 06:36] LABS: Basophils Absolute Auto 0.1 K/mm3 (0.0-0.1); Basophils Percent Auto 0.7 % (0.2-1.2); Eosinophils Absolute Auto 0.1 K/mm3 (0-0.3); Eosinophils Percent Auto 1.4 % (0-4.4); Hematocrit 35.9 % (37.0-47.0); Hemoglobin 11.8 g/dL (12.0-15.0); Immature Granulocyte Absolute 0.04 K/mm3 (0.00-0.031); Immature Granulocyte Percent A 0.5 % (0-0.5); Lymphocytes Absolute Auto 2.61 K/mm3 (0.9-3.2); Lymphocytes Percent Auto 31.3 % (18.3-44.2); Mean Corpuscular HGB Conc 32.9 g/dl (32-36); Mean Corpuscular Hemoglobin 30.3 pg (26-34); Mean Corpuscular Volume 92.3 fl (80-100); Monocytes Absolute Auto 0.6 K/mm3 (0.1-0.6); Monocytes Percent Auto 7.7 % (2.6-8.5); Neutrophils Absolute Auto 4.9 K/mm3 (1.3-6.7); Neutrophils Percent Auto 58.4 % (45.5-73.1); Platelet Count Result 187 k/mm3 (150-375); Red Blood Count 3.89 M/mm3 (4.2-5.4); Red Cell Distribution Width 12.6 % (11.5-14.5); White Blood Count 8.4 K/mm3 (4.5-10.0)
[2023-04-16 06:52] LABS: Alanine Aminotransferase 51 U/L (6-35); Albumin Level 3.6 g/dL (3.5-5.1); Alkaline Phosphatase 122 U/L (38-126); Anion Gap 7 mmol/L (8-16); Aspartate Amino Transferase 29 U/L (14-36); Bilirubin,Total 0.4 mg/dL (0.2-1.3); Blood Urea Nitrogen 3 mg/dL (7-17); Calcium 8.6 mg/dL (8.4-10.2); Carbon Dioxide 27 mmol/L (22-30); Chloride 102 mmol/L (98-107); Estimated CRCL calculation 82 ml/min; Estimated Glomerular Filt Rate > 60; Glucose 103 mg/dL (65-110); Potassium 4.1 mmol/L (3.4-5.0); Sodium 136 mmol/L (137-145)
[2023-04-16 08:25] VITALS: PULSE 94; O2SAT 99
[2023-04-16] MEDS: CEPHALEXIN 500 MG CAPSULE PO ×2 (08:49→20:29)
[2023-04-16] MEDS: PANTOPRAZOLE SODIUM IV 40 MG VIAL IV PUSH ×2 (08:49→20:29)
[2023-04-16] MEDS: VENLAFAXINE HCL XR 75 MG CAP.ER.24H PO (11:20)
[2023-04-16 11:42] LABS: Alanine Aminotransferase 54 U/L (6-35); Alkaline Phosphatase 138 U/L (38-126); Anion Gap 9 mmol/L (8-16); Aspartate Amino Transferase 37 U/L (14-36); Bilirubin,Total 0.6 mg/dL (0.2-1.3); Blood Urea Nitrogen 3 mg/dL (7-17); Calcium 9.2 mg/dL (8.4-10.2); Carbon Dioxide 28 mmol/L (22-30); Chloride 100 mmol/L (98-107); Estimated CRCL calculation 82 ml/min; Estimated Glomerular Filt Rate > 60; Glucose 98 mg/dL (65-110); Lipase 52 U/L (23-300); Potassium 3.6 mmol/L (3.4-5.0); Sodium 137 mmol/L (137-145)
--- NOTE | 2023-04-16 12:09 | PM.IMPN ---
Progress Note: A&P Assessment and Plan (1) Intractable abdominal pain: Code(s): R10.9 - Unspecified abdominal pain Status: Acute Assessment and Plan: epigastric in nature. Seems like pancreatitis though pancreatic enzymes and imaging are unremarkable for this. Gallstones are present. No signs of acute cholecystitis. However, given patient's level of discomfort gastroenterology and General surgery have been consulted. (2) Anxiety and depression: Code(s): F41.9 - Anxiety disorder, unspecified; F32.A - Depression, unspecified Status: Acute Assessment and Plan: Patient very anxious, moderately dysthymic, somewhat uncooperative with plan of care because she states I am just too frustrated. Patient has already threatened to leave against medical advice because she did not feel like she was being tended to enough. (3) Elevated LFTs: Code(s): R79.89 - Other specified abnormal findings of blood chemistry Status: Acute Assessment and Plan: minimal elevations that of improved since admission (4) Hyperlipidemia: Code(s): E78.5 - Hyperlipidemia, unspecified Status: Acute Assessment and Plan: Continue home medications (5) Abnormal urinalysis: Code(s): R82.90 - Unspecified abnormal findings in urine Status: Acute Assessment and Plan: Patient treated for urinary tract infection with ceftriaxone. Urine culture pending. Plan Pain control, GI and general surgery consults. Consideration for functional abdominal pain Time Spent With Patient Time with patient: 25 - 35 minutes Subjective Date/time seen: 04/16/23 12:09 Interval history: Patient was admitted for epigastric pain that she states is constant but comes and goes in waves. Prior hiatal hernia surgery which required additional surgeries. Patient reports that morphine is helping her pain but it is wearing off before next dose is available. Patient's mother is at bedside very concerned the patient continues to receive morphine. Review of Systems Review of Systems: Twelve systems were reviewed and are negative except for as per HPI. All systems reviewed & are unremarkable except as noted in HPI and below Exam Narrative: General: Well-developed, nontoxic-appearing female in mild discomfort. Weight: 71.7 kg. BMI: 25.5. HEENT: PERRL, EOMI. Sclera anicteric. Normal mucous membranes. Oropharynx clear. Neck: Supple. No JVD Respiratory: Lungs are clear to auscultation bilaterally. Cardiovascular: Regular rate and rhythm with S1-S2. Gastrointestinal: Abdomen is soft and nondistended with positive bowel sounds. She is tender to palpation throughout the upper abdomen, more so in the epigastric region. Mild guarding but no rebound tenderness. Skin: Warm and dry. No rash or lesions on limited exam. Extremities: No cyanosis, clubbing, or edema. Radial and pedal pulses intact. Neurological: Alert. Cranial nerves 2-12 are grossly intact. No gross focal deficits to casual conversation. Psychiatric: Anxious mood and dysthymic Objective Data Vital Signs Vital Signs: Vital Signs - 24 hr 04/15/23 17:00 04/15/23 17:27 04/15/23 18:24 Temperature 35.9 C L Pulse Rate 68 93 Respiratory Rate 18 18 Blood Pressure 145/85 H Pulse Oximetry 97 100 Oxygen Delivery Room Air 04/15/23 22:00 04/16/23 06:00 04/16/23 08:25 Temperature 37.8 C H 37.2 C Pulse Rate 95 83 94 Respiratory Rate 18 16 Blood Pressure 152/82 H 136/67 Pulse Oximetry 99 96 99 Oxygen Delivery Room Air Intake/Output Intake/Output: Intake & Output 04/13/23 04/14/23 04/15/23 04/16/23 23:59 23:59 23:59 23:59 Intake Total 100 Balance 100 Meds/Results Medications: Active Medications Generic Name Dose Route Start Last Admin Trade Name Freq PRN Reason Stop Dose Admin Hydrocodone Bitart/Acetaminophen 1 tab 04/16/23 11:12 Hydrocodone/Acetaminophen (*Crx) 5-325 M
[2023-04-16] MEDS: HYDROcodone/acetaminophen (*CRX) 5-325 MG TABLET 1 TAB PO ×2 (12:29→22:40)
--- NOTE | 2023-04-16 12:34 | PM.CNGS ---
Assessment and Plan Assessment and plan (1) Cholelithiasis: Code(s): K80.20 - Calculus of gallbladder without cholecystitis without obstruction Status: Acute Assessment and Plan: Patient presents with epigastric abdominal pain x [address] and ultrasound show small gallstones in the dependent aspect of the gallbladder, but no findings to suggest acute cholecystitis. WBC count has been normal. Her presentation and exam are atypical for gallbladder disease. She is primarily complaining of epigastric abdominal pain and does not have any tenderness in the RUQ on exam. We would agree with GI consultation for possible EGD. We will also order a HIDA scan for tomorrow to further evaluate for acute cholecystitis. Further plan depending on these results. (2) Abdominal pain, epigastric: Code(s): R10.13 - Epigastric pain Status: Acute Assessment and Plan: Unclear etiology. See plan above. GI also consulted. (3) Elevated LFTs: Code(s): R79.89 - Other specified abnormal findings of blood chemistry Status: Acute Assessment and Plan: Mildly elevated liver enzymes on admission, trending down. Continue to monitor labs. (4) Abnormal urinalysis: Code(s): R82.90 - Unspecified abnormal findings in urine Status: Acute Assessment and Plan: Recently treated for urinary tract infection when going to the ER at [facility]. UA on this admission abnormal, but she is asymptomatic. Cephalexin that was prescribed from the previous ER visit was continued now. Urine culture pending. Management per Hospitalist. Plan I have discussed the patient's case and plan of care with Dr. Anderson. Thank you for allowing us to see the patient in consultation and we will continue to follow along with you. History of Present Illness Consult details Consult date: 04/16/23 Reason for consult: gallstones Requesting physician: Jhoan Fox, ALLY Narrative: This is a 57-year-old woman who we have been asked to see in surgical consultation for cholelithiasis and epigastric abdominal pain. The patient woke 5 days ago with generalized malaise. She reports chills, headache, and also noticed some mild epigastric abdominal pain. She had not eaten that morning and cannot recall eating anything other than toast the night before. She felt somewhat better the next day, but continued to have epigastric abdominal pain. Her pain remained constant through the weekend and progressively worsened. She has not eaten since her abdominal pain started, as she has had a poor appetite and nausea as well. Denies any vomiting or diarrhea. She does report feeling constipated with her last bowel movement about 4 days ago. Her pain became severe on Saturday and ended up bringing her in to [facility] ER for evaluation. She reports having a CT of the abdomen and pelvis that was reportedly negative. She was diagnosed with a urinary tract infection and discharged from the ER with oral antibiotics and pain medication. She denies any dysuria, pelvic pain, urinary frequency, or urgency. Her pain continued and she went to the ER in [place] on Saturday. They reportedly repeated a CT scan of the abdomen that showed cholelithiasis, but no other findings. She was discharged home and continued to have abdominal pain, therefore she presented to [facility] ER for evaluation yesterday. Labs showed a normal white blood cell count, total bilirubin 0.5, AST 40, ALT 69, alk-phos 134, troponin negative, lipase normal. Right upper quadrant abdominal ultrasound showed cholelithiasis with no gallbladder wall thickening, dilation, or sonographic Badillo sign to suggest acute cholecystitis. Chest x-ray showed small sliding hiatal hernia. CT of the abdomen and pelvis showed cholelithiasis and small to moderate hiatal hernia. She was admitted and is currently NPO. GI was consulted. Our service has also been consulted for epigastric abdominal pain and cholelithi
--- NOTE | 2023-04-16 13:06 | PM.IMPN ---
Subjective Date/time seen: 04/16/23 13:06 Objective Data Vital Signs Vital Signs: Vital Signs - 24 hr 04/15/23 17:00 04/15/23 17:27 04/15/23 18:24 Temperature 35.9 C L Pulse Rate 68 93 Respiratory Rate 18 18 Blood Pressure 145/85 H Pulse Oximetry 97 100 Oxygen Delivery Room Air 04/15/23 22:00 04/16/23 06:00 04/16/23 08:25 Temperature 37.8 C H 37.2 C Pulse Rate 95 83 94 Respiratory Rate 18 16 Blood Pressure 152/82 H 136/67 Pulse Oximetry 99 96 99 Oxygen Delivery Room Air Intake/Output Intake/Output: Intake & Output 04/13/23 04/14/23 04/15/23 04/16/23 23:59 23:59 23:59 23:59 Intake Total 100 Balance 100 Meds/Results Medications: Active Medications Generic Name Dose Route Start Last Admin Trade Name Freq PRN Reason Stop Dose Admin Hydrocodone Bitart/Acetaminophen 1 tab 04/16/23 11:12 04/16/23 12:29 Hydrocodone/Acetaminophen (*Crx) 5-325 Mg Tablet PO 1 tab Q4H PRN Administration Pain Rated 6 or Greater Atorvastatin Calcium 20 mg 04/16/23 12:00 04/16/23 11:25 Atorvastatin 20 Mg Tablet PO Not Given DAILY@1200 ROLANDO Cephalexin HCl 500 mg 04/15/23 21:00 04/16/23 08:49 Cephalexin 500 Mg Capsule PO 500 mg Q12HR ROLANDO Administration Morphine Sulfate 2 mg 04/15/23 19:55 04/16/23 08:49 Morphine Sulfate (*Crx) 2 Mg/Ml Inj IV PUSH 2 mg Q4H PRN Administration Pain Rated 7-10 Ondansetron HCl 4 mg 04/15/23 15:42 Ondansetron Inj 4 Mg/2 Ml Vial IV PUSH Q4H PRN Nausea Pantoprazole Sodium 40 mg 04/15/23 21:00 04/16/23 08:49 Pantoprazole Sodium Iv 40 Mg Vial IV PUSH 40 mg Q12HR ROLANDO Administration Spironolactone 100 mg 04/16/23 12:00 04/16/23 11:26 Spironolactone 50 Mg Tablet PO Not Given DAILY@NOON [facility] Venlafaxine HCl 75 mg 04/16/23 12:00 04/16/23 11:20 Venlafaxine Hcl Xr 75 Mg Cap.Er.24h PO 75 mg DAILY@NOON ROLANDO Administration Radiology Results: ITS Impressions Abdomen Ultrasound 04/15/23 13:44 IMPRESSION: 1. Cholelithiasis. No gallbladder dilation, wall thickening or sonographic Badillo's sign to suggest acute cholecystitis. Chest X-Ray 04/15/23 13:57 IMPRESSION: 1. Small sliding hiatal hernia. Abdomen/Pelvis CT 04/15/23 14:30 Impression: Cholelithiasis. Small to moderate hiatal hernia. Labs Labs: Laboratory Results - last 24 hr 04/15/23 04/15/23 04/16/23 12:05 13:07 05:39 WBC 8.4 RBC 3.89 L Hgb 11.8 L Hct 35.9 L MCV 92.3 MCH 30.3 MCHC 32.9 RDW 12.6 Plt Count 187 MPV 9.0 Immature Gran % (Auto) 0.5 Neut % (Auto) 58.4 Lymph % (Auto) 31.3 [place] % (Auto) 7.7 Eos % (Auto) 1.4 Baso % (Auto) 0.7 Lymph # (Auto) 2.61 [place] # (Auto) 0.6 Eos # (Auto) 0.1 Baso # (Auto) 0.1 Abs Immat Gran (auto) 0.04 H Absolute Neuts (auto) 4.9 Absolute Nucleated RBC 0.0 Nucleated RBC % 0.0 Sodium 136 L Potassium 4.1 Chloride 102 Carbon Dioxide 27 Anion Gap 7 L BUN 3 L Creatinine 0.60 L Estim Creat Clear Calc 82 Estimated GFR > 60 Glucose 103 Lactic Acid 0.8 Calcium 8.6 Magnesium 2.0 Total Bilirubin 0.4 Direct Bilirubin 0.0 AST 29 ALT 51 H Alkaline Phosphatase 122 Troponin I < 0.012 Total Protein 7.0 Albumin 3.6 Lipase 04/16/23 11:26 WBC RBC Hgb Hct MCV MCH MCHC RDW Plt Count MPV Immature Gran % (Auto) Neut % (Auto) Lymph % (Auto) [place] % (Auto) Eos % (Auto) Baso % (Auto) Lymph # (Auto) [place] # (Auto) Eos # (Auto) Baso # (Auto) Abs Immat Gran (auto) Absolute Neuts (auto) Absolute Nucleated RBC Nucleated RBC % Sodium 137 Potassium 3.6 Chloride 100 Carbon Dioxide 28 Anion Gap 9 BUN 3 L Creatinine 0.60 L Estim Creat Clear Calc 82 Estimated GFR > 60 Glucose 98 Lactic Acid Calcium 9.2 Magnesium Total Bilirubin 0.6 Direct Bilirubin AST 3
[2023-04-16 13:47] VITALS: BP 145/82; PULSE 73; RESP 16; TEMP 36.6; O2SAT 100
--- NOTE | 2023-04-16 13:48 | WPDGICN ---
Assessment and Plan Assessment and plan (1) Abdominal pain, epigastric: Code(s): R10.13 - Epigastric pain Status: Acute Assessment and Plan: persistent for almost 5 days she had complications after hiatal hernia repair in 2011 that required multiple interventions will assess with egd to assess if ulcer, esophagitis, etc (2) Nausea: Code(s): R11.0 - Nausea Status: Acute Assessment and Plan: medical care (3) Elevated LFTs: Code(s): R79.89 - Other specified abnormal findings of blood chemistry Status: Acute Assessment and Plan: mild elevated, normal bili ultrasound showed cholelithiasis (4) Hiatal hernia: Code(s): K44.9 - Diaphragmatic hernia without obstruction or gangrene Status: Acute GI Consult Note Consult date/time: 04/16/23 13:48 Reason for consult: epigastric pain HPI: Anabelle Chan is a 57 year old female with history of complicated paraesophageal hernia repair that required gastrostomy tube and after removal had non-healing wound in 2011, eventually she went to [facility] where required 3 more interventions because disruption of hiatal closure and apparently had infection and for the most part since then had upper GI symptom relatively under control. She is here with almost persistent epigastric pain for last 5 days progressively worse, also nausea but no vomiting. She is worried because previous history, morphine here helped with pain, normally does not use ppi. CT scan reviewed, Cholelithiasis. Small to moderate hiatal hernia. Transaminases 30-50, normal bili. Her last colonoscopy 2021 with diverticulosis. Review of Systems Review of Systems: All systems reviewed & are unremarkable except as noted in HPI and below Constitutional: Constitutional: Denies chills Eyes: Eyes: Denies blurry vision ENT: Reports Normal hearing present Cardiovascular: Cardiovascular: Reports no additional cardiovascular complaints, Denies chest pain and Denies leg edema Respiratory: Respiratory: Reports no additional respiratory complaints, Denies cough and Denies dyspnea Gastrointestinal: Gastrointestinal: Reports abdominal pain, Denies melena, Denies bloating, Reports constipation, Denies diarrhea, Reports nausea and Denies vomiting Genitourinary: Genitourinary: Denies dysuria Musculoskeletal: Musculoskeletal: Reports no additional musculoskeletal complaints, Denies abnormal gait and Denies joint swelling Integumentary/Breasts: Skin/Breast: Reports system reviewed and no additional complaints, except as docu and Denies jaundice Neurologic: Reports system reviewed and no additional complaints, except as documented, Denies headache(s), Denies focal weakness, Denies numbness and Denies tingling Psychiatric: Psychiatric: Denies behavioral changes [facility] Past Medical History Medical History (Updated 04/16/23 @ 13:59 by Bryce Reyes MD) Anemia Anxiety and depression Diverticulitis Hiatal hernia Hiatal hernia Hyperlipidemia Nausea Surgical History Surgical History History of tubal ligation Status post repair of paraesophageal diaphragmatic hernia paraesophageal hernia repair with placement of gastrostomy tube in 2011. Patient reports a total of 5 surgeries in regards to her hiatal hernia. She had a laparoscopic hiatal hernia repair with Sophia fundoplication in 2016 at [place] complicated by acute recurrence requiring takeback for repair of disruption of her hiatal closure. Family History Family History Father Family history of heart disease in male family member before age 55 Family history of diabetes mellitus in first degree relative Patient's father is Carcinoma of colon Sibling Patient's brother is in good health Fibromyalgia Social History Social History So
[2023-04-16 22:00] VITALS: BP 173/95; PULSE 93; RESP 16; TEMP 35.6; O2SAT 100
[2023-04-17] VITALS (8 sets, daily range): BP systolic 128–180; BP diastolic 82–98; PULSE 77–104; RESP 15–20; TEMP 36.3–37; O2SAT 99–100
[2023-04-17] MEDS: MORPHINE SULFATE (*CRX) 2 MG/ML INJ IV PUSH ×2 (05:00→15:39)
[2023-04-17 06:35] LABS: Basophils Absolute Auto 0.1 K/mm3 (0.0-0.1); Basophils Percent Auto 0.6 % (0.2-1.2); Eosinophils Absolute Auto 0.2 K/mm3 (0-0.3); Eosinophils Percent Auto 1.9 % (0-4.4); Hemoglobin 12.6 g/dL (12.0-15.0); Immature Granulocyte Absolute 0.03 K/mm3 (0.00-0.031); Immature Granulocyte Percent A 0.4 % (0-0.5); Lymphocytes Absolute Auto 2.49 K/mm3 (0.9-3.2); Lymphocytes Percent Auto 31.9 % (18.3-44.2); Mean Corpuscular HGB Conc 33.2 g/dl (32-36); Mean Corpuscular Volume 90.5 fl (80-100); Mean Platelet Volume 8.8 fl (7.4-10.4); Monocytes Absolute Auto 0.5 K/mm3 (0.1-0.6); Monocytes Percent Auto 6.8 % (2.6-8.5); Neutrophils Absolute Auto 4.6 K/mm3 (1.3-6.7); Neutrophils Percent Auto 58.4 % (45.5-73.1); Platelet Count Result 222 k/mm3 (150-375); Red Cell Distribution Width 12.3 % (11.5-14.5); White Blood Count 7.8 K/mm3 (4.5-10.0)
[2023-04-17 06:47] LABS: Alanine Aminotransferase 66 U/L (6-35); Albumin Level 4.1 g/dL (3.5-5.1); Alkaline Phosphatase 132 U/L (38-126); Anion Gap 8 mmol/L (8-16); Aspartate Amino Transferase 46 U/L (14-36); Bilirubin,Total 0.6 mg/dL (0.2-1.3); Blood Urea Nitrogen 5 mg/dL (7-17); Calcium 9.3 mg/dL (8.4-10.2); Carbon Dioxide 29 mmol/L (22-30); Chloride 98 mmol/L (98-107); Estimated CRCL calculation 97 ml/min; Estimated Glomerular Filt Rate > 60; Glucose 107 mg/dL (65-110); Sodium 135 mmol/L (137-145)
[2023-04-17] MEDS: CEPHALEXIN 500 MG CAPSULE PO (08:08)
[2023-04-17] MEDS: HYDROcodone/acetaminophen (*CRX) 5-325 MG TABLET 1 TAB PO (08:08)
[2023-04-17] MEDS: PANTOPRAZOLE SODIUM IV 40 MG VIAL IV PUSH ×2 (08:09→22:00)
--- NOTE | 2023-04-17 08:15 | PM.IMPN ---
Progress Note: A&P Assessment and Plan (1) Intractable abdominal pain: Code(s): R10.9 - Unspecified abdominal pain Status: Acute Assessment and Plan: Abdominal pain for 5+ days, epigastric in nature US with gallstones but no signs of acute cholecystitis Surgery consulted, HIDA scan ordered for 04/18 GI consulted, EGD today findings of erosive gastritis (2) Anxiety and depression: Code(s): F41.9 - Anxiety disorder, unspecified; F32.A - Depression, unspecified Status: Acute Assessment and Plan: Patient very anxious, moderately dysthymic, somewhat uncooperative with plan of care because she states I am just too frustrated. Patient has already threatened to leave against medical advice because she did not feel like she was being tended to enough. (3) Hyperlipidemia: Code(s): E78.5 - Hyperlipidemia, unspecified Status: Acute Assessment and Plan: Continue home medications Lipid panel for tomorrow (4) Elevated LFTs: Code(s): R79.89 - Other specified abnormal findings of blood chemistry Status: Acute Assessment and Plan: minimal elevations that of improved since admission AST 46, ALT 66, Alkaline phosphatase 132 (5) Abnormal urinalysis: Code(s): R82.90 - Unspecified abnormal findings in urine Status: Acute Assessment and Plan: Patient treated for urinary tract infection with ceftriaxone. Urine culture negative, no growth. Stopping antibiotics. Plan Advance diet to low fiber, bland today GI and general surgery consults. Pending HIDA scan 04/18. Subjective Date/time seen: 04/17/23 08:15 Interval history: HPI obtained from chart, This is a 57-year-old female with history of periesophageal hernia repair requiring 4 separate surgery due to complications, diverticulitis, hyperlipidemia, depression, and anxiety who presented to the emergency department via private vehicle from home for evaluation of abdominal pain. The patient provides the following history. For the last 4 days or so she has had pain in the upper abdomen and epigastric region associated with nausea. She describes a constant, dull but significant aching discomfort without significant radiation.? She has not noticed any aggravating or alleviating factors and states that is not made better or worse with food.? Her appetite has not been great however and she has not had much to eat for 3 days.? Her last bowel movement was on Saturday and was normal for her. She also reports a subjective fever in addition to nausea.? She has not had any vomiting. She was seen emergency department [facility] last night at which time she reportedly had a negative workup including a negative CT scan. Her symptoms have not improved and she came into this facility for evaluation. Vital signs were stable on arrival. Labs were pretty unremarkable with the only outlier is being a sodium of 135, AST 40, ALT 69, and alkaline phosphatase 134. Urine was positive for 1+ ketones, 2+ leukocyte esterase, 51 to 100 WBCs; no bacteria were seen on microscopy. Right upper quadrant ultrasound showed cholelithiasis without other concerning findings. CT of the abdomen and pelvis showed cholelithiasis and a small to moderate hiatal hernia. In the ED she was treated with famotidine, morphine, ondansetron, and a GI cocktail. Unfortunately she continues to have ongoing cramping pain and she is being admitted in this setting for further evaluation. She has not had a fever for couple of days and denies headache, sinus congestion, cough, hematemesis, melena, and hematochezia. She has no history of peptic ulcers. Her symptoms are not similar to GERD or diverticulitis. She has known cholelithiasis but they have never caused her any problems. She drinks 1 cup of coffee a day. She drinks alcohol on the weekends, sometimes heavily. Of note she is currently on Keflex for urinary tract infection. Interval history:
--- NOTE | 2023-04-17 09:09 | PM.PNGS ---
Progress Note: A&P Assessment and Plan (1) Cholelithiasis: Code(s): K80.20 - Calculus of gallbladder without cholecystitis without obstruction Status: Acute Assessment and Plan: Continues to have epigastric abdominal pain. Initial imaging suggested cholelithiasis without any findings of cholecystitis. WBC count still normal. HIDA scan ordered for this morning but she is unable to have the test done prior to the EGD due to receiving narcotics, and can't have it done after the EGD. Will await EGD results and HIDA could be done tomorrow morning. (2) Abdominal pain, epigastric: Code(s): R10.13 - Epigastric pain Status: Acute Assessment and Plan: Unclear etiology. See plan above. EGD today. May add IV Ibuprofen as another option for pain overnight while waiting for HIDA scan tomorrow if her EGD is negative. (3) Elevated LFTs: Code(s): R79.89 - Other specified abnormal findings of blood chemistry Status: Acute Assessment and Plan: LFTs up slightly today, continue to monitor labs Plan I have discussed the patient's case and plan of care with Dr. Anderson. Subjective Subjective Date/Time Seen: 04/17/23 09:09 Patient reports: no new complaints, still having pain and afebrile Interval history: Patient seen this morning. She denies any changes in her symptoms. She is still having epigastric abdominal pain that is been constant without any relief in the pain medication she is getting. She did receive IV morphine around 5:00 a.m. this morning and [place] around 8:00 a.m.. She is scheduled for an EGD today. Review of Systems Review of Systems: ROS unchanged Exam Const: General: no acute distress and uncomfortable (Due to abdominal pain) Orientation/consciousness: patient oriented x3 GI: Inspection: non-distended GI Palp: Yes Soft to palpation, Yes Tenderness to palpation present (GI) (Tenderness only in epigastric area, no right upper quadrant tenderness), No Guarding due to palpation present (GI) and No Rebound tenderness present Auscultation: normal bowel sounds Objective Data Vital Signs Vital Signs: Vital Signs - 24 hr 04/16/23 13:47 04/16/23 22:00 04/17/23 06:00 Temperature 97.8 F 96.1 F L 97.3 F L Pulse Rate 73 93 77 Respiratory Rate 16 16 20 Blood Pressure 145/82 H 173/95 H 180/90 H Pulse Oximetry 100 100 100 Intake/Output Intake/Output: Intake & Output 04/14/23 04/15/23 04/16/23 04/17/23 23:59 23:59 23:59 23:59 Intake Total 100 520 50 Balance 100 520 50 Meds/Results Medications: Active Medications Generic Name Dose Route Start Last Admin Trade Name Freq PRN Reason Stop Dose Admin Hydrocodone Bitart/Acetaminophen 1 tab 04/16/23 11:12 04/17/23 08:08 Hydrocodone/Acetaminophen (*Crx) 5-325 Mg Tablet PO 1 tab Q4H PRN Administration Pain Rated 6 or Greater Atorvastatin Calcium 20 mg 04/16/23 12:00 04/16/23 11:25 Atorvastatin 20 Mg Tablet PO Not Given DAILY@[email or web address] [place] [address] Hydralazine HCl 10 mg 04/17/23 08:30 Hydralazine Hcl 20 Mg/Ml Vial IV PUSH Q6HR PRN Blood Pressure - High Morphine Sulfate 2 mg 04/15/23 19:55 04/17/23 05:00 Morphine Sulfate (*Crx) 2 Mg/Ml Inj IV PUSH 2 mg Q4H PRN Administration Pain Rated 7-10 Ondansetron HCl 4 mg 04/15/23 15:42 Ondansetron Inj 4 Mg/2 Ml Vial IV PUSH Q4H PRN Nausea Pantoprazole Sodium 40 mg 04/15/23 21:00 04/17/23 08:09 Pantoprazole Sodium Iv 40 Mg Vial IV PUSH 40 mg Q12HR [facility] Administration Spironolactone 100 mg 04/16/23 12:00 04/16/23 11:26 Spironolactone 50 Mg Tablet PO Not Given [email or web address] [facility] Venlafaxine HCl 75 mg 04/16/23 12:00 04/16/23 11:20 Venlafaxine Hcl Xr 75 Mg Cap.Er.24h PO 75 mg DAILY@[email or web address] Administration Radiology Results: ITS Impressions Abdomen Ultrasound 04/15/23 13:44 IMPRESSION: 1. Cholelithiasis. No gallbladder dilation, wall thickening or sonograp
[2023-04-17] MEDS: LACTATED RINGERS 1,000 ML 150 ML IV CONT (11:04)
--- NOTE | 2023-04-17 11:54 | WPDANESEPPF ---
Anes - Initial Pre Proc Eval Procedure: Operation Date: 04/17/23 13:15 Proposed Procedures p Esophagogastroduodenoscopy - Bryce Reyes MD Date/Time: 04/17/23 11:54 Surgeon: Popeye Staley MD Pre Op Diagnosis: Intractable Abdominal Pain Patient Data Age: 57 Gender: F Height: 1.68 m Weight: 71.7 kg Last Vital Signs Temp 97.8 F 04/17/23 11:06 Pulse 91 04/17/23 11:06 Resp 20 04/17/23 11:06 BP 150/84 H 04/17/23 11:06 Pulse Ox 99 04/17/23 11:06 O2 Del Method Room Air 04/17/23 11:06 Allergies Allergy/AdvReac Type Severity Reaction Status Date / Time Aminoglycosides Allergy Intermediate RASH Verified 04/17/23 11:05 neomycin Allergy Intermediate RASH Verified 04/17/23 11:05 Sulfa (Sulfonamide Allergy Intermediate HIVES Verified 04/17/23 11:05 Antibiotics) sulfamethoxazole Allergy Intermediate HIVES Verified 04/17/23 11:05 bacitracin Allergy Mild Rash Verified 04/17/23 11:05 hydrocortisone Allergy Mild Rash Verified 04/17/23 11:05 polymyxin B Allergy Mild Rash Verified 04/17/23 11:05 sulfamethizole Allergy Mild Rash Verified 04/17/23 11:05 trimethoprim Allergy Mild Rash Verified 04/17/23 11:05 nitrofurantoin AdvReac Mild Nausea Verified 04/17/23 11:05 [From Macrobid] Home Medications Medication Instructions Recorded Confirmed Type atorvastatin 20 mg tablet 20 mg PO QNOON 04/15/23 04/15/23 History spironolactone 100 mg tablet 100 mg PO QNOON 04/15/23 04/15/23 History venlafaxine 75 mg capsule,extended 75 mg PO QNOON 04/15/23 04/15/23 History release 24 hr Laboratory Tests 04/17/23 06:06 WBC 7.8 K/mm3 (4.5-10.0) RBC 4.20 M/mm3 (4.2-5.4) Hgb 12.6 g/dL (12.0-15.0) Hct 38.0 % (37.0-47.0) MCV 90.5 fl (80-100) MCH 30.0 pg (26-34) MCHC 33.2 g/dl (32-36) RDW 12.3 % (11.5-14.5) Plt Count 222 k/mm3 (150-375) MPV 8.8 fl (7.4-10.4) Immature Gran % (Auto) 0.4 % (0-0.5) Neut % (Auto) 58.4 % (45.5-73.1) Lymph % (Auto) 31.9 % (18.3-44.2) [place] % (Auto) 6.8 % (2.6-8.5) Eos % (Auto) 1.9 % (0-4.4) Baso % (Auto) 0.6 % (0.2-1.2) Lymph # (Auto) 2.49 K/mm3 (0.9-3.2) [place] # (Auto) 0.5 K/mm3 (0.1-0.6) Eos # (Auto) 0.2 K/mm3 (0-0.3) Baso # (Auto) 0.1 K/mm3 (0.0-0.1) Abs Immat Gran (auto) 0.03 K/mm3 (0.00-0.031) Absolute Neuts (auto) 4.6 K/mm3 (1.3-6.7) Absolute Nucleated RBC 0.0 K/mm3 (0.0-0.012) Nucleated RBC % 0.0 % (0.0-0.2) Sodium 135 L mmol/L (137-145) Potassium 4.0 mmol/L (3.4-5.0) Chloride 98 mmol/L (98-107) Carbon Dioxide 29 mmol/L (22-30) Anion Gap 8 mmol/L (8-16) BUN 5 L mg/dL (7-17) Creatinine 0.50 L mg/dL (0.7-1.0) Estim Creat Clear Calc 97 ml/min Estimated GFR > 60 (59 - ) Glucose 107 mg/dL (65-110) Calcium 9.3 mg/dL (8.4-10.2) Total Bilirubin 0.6 mg/dL (0.2-1.3) AST 46 H U/L (14-36) ALT 66 H U/L (6-35) Alkaline Phosphatase 132 H U/L (38-126) Total Protein 7.0 g/dL (6.3-8.2) Albumin 4.1 g/dL (3.5-5.1) Patient hx anesthesia problems: none Family hx anesthesia problems: none Results Review: All pre-operative results and documents have been reviewed as part of the pre-operative evaluation. [facility] Past Medical History Medical History (Updated 04/16/23 @ 16:20 by Malorie Anglin PA-C) Anemia Anxiety and depression Diverticulitis Hiatal hernia Hyperlipidemia Surgical History Surgical History History of tubal ligation Status post repair of paraesophageal diaphragmatic hernia paraesophageal hernia repair with placement of gastrostomy tube in 2011. Patient reports a total of 5 surgeries in regards to her hiatal hernia. She had a laparoscopic hiatal hernia repair with Sophia fundoplication in 2015 at [place] complicated by acute recurrence requiring ta
[2023-04-17] MEDS: BENZOCAINE (*SP) 60 ML SPRAY CAN (HURRICAINE) 1 SPRAY MUCOUS MEM (12:13)
[2023-04-17] MEDS: ATORVASTATIN 20 MG TABLET PO (12:59)
[2023-04-17] MEDS: SPIRONOLACTONE 50 MG TABLET 100 MG PO (12:59)
[2023-04-17] MEDS: VENLAFAXINE HCL XR 75 MG CAP.ER.24H PO (13:00)
[2023-04-17] MEDS: ACETAMINOPHEN 500 MG TABLET 1000 MG PO (22:00)
[2023-04-18] MEDS: ACETAMINOPHEN 500 MG TABLET 1000 MG PO (04:24)
[2023-04-18 05:44] VITALS: BP 160/100; PULSE 88; RESP 20; TEMP 36; O2SAT 100
[2023-04-18 07:11] LABS: Basophils Absolute Auto 0.1 K/mm3 (0.0-0.1); Basophils Percent Auto 0.7 % (0.2-1.2); Eosinophils Absolute Auto 0.2 K/mm3 (0-0.3); Eosinophils Percent Auto 2.2 % (0-4.4); Hematocrit 40.5 % (37.0-47.0); Hemoglobin 13.7 g/dL (12.0-15.0); Immature Granulocyte Absolute 0.03 K/mm3 (0.00-0.031); Immature Granulocyte Percent A 0.3 % (0-0.5); Lymphocytes Absolute Auto 2.24 K/mm3 (0.9-3.2); Lymphocytes Percent Auto 25.7 % (18.3-44.2); Mean Corpuscular HGB Conc 33.8 g/dl (32-36); Mean Corpuscular Hemoglobin 30.2 pg (26-34); Mean Corpuscular Volume 89.2 fl (80-100); Mean Platelet Volume 8.7 fl (7.4-10.4); Monocytes Absolute Auto 0.5 K/mm3 (0.1-0.6); Neutrophils Absolute Auto 5.7 K/mm3 (1.3-6.7); Neutrophils Percent Auto 65.1 % (45.5-73.1); Platelet Count Result 285 k/mm3 (150-375); Red Blood Count 4.54 M/mm3 (4.2-5.4); Red Cell Distribution Width 12.2 % (11.5-14.5); White Blood Count 8.7 K/mm3 (4.5-10.0)
[2023-04-18 07:25] LABS: Alanine Aminotransferase 62 U/L (6-35); Albumin Level 4.5 g/dL (3.5-5.1); Alkaline Phosphatase 144 U/L (38-126); Anion Gap 11 mmol/L (8-16); Aspartate Amino Transferase 35 U/L (14-36); Bilirubin,Total 0.8 mg/dL (0.2-1.3); Blood Urea Nitrogen 8 mg/dL (7-17); Calcium 9.8 mg/dL (8.4-10.2); Carbon Dioxide 30 mmol/L (22-30); Chloride 96 mmol/L (98-107); Cholesterol 161 mg/dL (0-200); Estimated CRCL calculation 82 ml/min; Estimated Glomerular Filt Rate > 60; Glucose 115 mg/dL (65-110); HDL Direct 41 mg/dL; Sodium 137 mmol/L (137-145); Triglycerides 122 mg/dL (<150)
[2023-04-18 07:35] LABS: LDL Cholesterol Direct 84 mg/dL
--- NOTE | 2023-04-18 08:02 | PM.IMPN ---
Progress Note: A&P Assessment and Plan (1) Intractable abdominal pain: Code(s): R10.9 - Unspecified abdominal pain Status: Acute Assessment and Plan: Abdominal pain for 5+ days, epigastric in nature US with gallstones but no signs of acute cholecystitis Surgery consulted, HIDA scan ordered for 04/18 GI consulted, EGD today findings of erosive gastritis (2) Anxiety and depression: Code(s): F41.9 - Anxiety disorder, unspecified; F32.A - Depression, unspecified Status: Acute Assessment and Plan: Patient very anxious, moderately dysthymic, somewhat uncooperative with plan of care because she states I am just too frustrated. Patient has already threatened to leave against medical advice because she did not feel like she was being tended to enough. (3) Hyperlipidemia: Code(s): E78.5 - Hyperlipidemia, unspecified Status: Acute Assessment and Plan: Continue home medications Lipid panel; Triglycerides 122, Total cholesterol 161, LDL 84, HDL 41 (4) Elevated LFTs: Code(s): R79.89 - Other specified abnormal findings of blood chemistry Status: Acute Assessment and Plan: minimal elevations that of improved since admission AST 46, ALT 66, Alkaline phosphatase 132 (5) Abnormal urinalysis: Code(s): R82.90 - Unspecified abnormal findings in urine Status: Acute Assessment and Plan: Patient treated for urinary tract infection with ceftriaxone. Urine culture negative, no growth. Stopping antibiotics. Plan Advance diet to low fiber, bland today GI and general surgery consults. Pending HIDA scan 04/18. Subjective Date/time seen: 04/18/23 08:02 Interval history: HPI obtained from chart, This is a 57-year-old female with history of periesophageal hernia repair requiring 4 separate surgery due to complications, diverticulitis, hyperlipidemia, depression, and anxiety who presented to the emergency department via private vehicle from home for evaluation of abdominal pain. The patient provides the following history. For the last 4 days or so she has had pain in the upper abdomen and epigastric region associated with nausea. She describes a constant, dull but significant aching discomfort without significant radiation.? She has not noticed any aggravating or alleviating factors and states that is not made better or worse with food.? Her appetite has not been great however and she has not had much to eat for 3 days.? Her last bowel movement was on Saturday and was normal for her. She also reports a subjective fever in addition to nausea.? She has not had any vomiting. She was seen emergency department [facility] last night at which time she reportedly had a negative workup including a negative CT scan. Her symptoms have not improved and she came into this facility for evaluation. Vital signs were stable on arrival. Labs were pretty unremarkable with the only outlier is being a sodium of 135, AST 40, ALT 69, and alkaline phosphatase 134. Urine was positive for 1+ ketones, 2+ leukocyte esterase, 51 to 100 WBCs; no bacteria were seen on microscopy. Right upper quadrant ultrasound showed cholelithiasis without other concerning findings. CT of the abdomen and pelvis showed cholelithiasis and a small to moderate hiatal hernia. In the ED she was treated with famotidine, morphine, ondansetron, and a GI cocktail. Unfortunately she continues to have ongoing cramping pain and she is being admitted in this setting for further evaluation. She has not had a fever for couple of days and denies headache, sinus congestion, cough, hematemesis, melena, and hematochezia. She has no history of peptic ulcers. Her symptoms are not similar to GERD or diverticulitis. She has known cholelithiasis but they have never caused her any problems. She drinks 1 cup of coffee a day. She drinks alcohol on the weekends, sometimes heavily. Of note she is currently on Keflex for ur
[2023-04-18 08:30] LABS: Atypical Lymphocytes Present; Platelet Estimate Adequate (Adequate); Schistocytes None Seen (NORMAL)
[2023-04-18] MEDS: PANTOPRAZOLE SODIUM IV 40 MG VIAL IV PUSH (09:49)
[2023-04-18] MEDS: MORPHINE SULFATE (*CRX) 2 MG/ML INJ IV PUSH (10:10)
--- NOTE | 2023-04-18 11:38 | WPDGIPROGNO ---
Progress Note: A&P Assessment and Plan (1) Abdominal pain, epigastric: Code(s): R10.13 - Epigastric pain Status: Acute Assessment and Plan: has improved with medical treatment also had moderate erosive gastritis in antrum. I do not know if will be enough to account for symptoms but overall better iv protonix, ok to advance diet (2) Nausea: Code(s): R11.0 - Nausea Status: Acute Assessment and Plan: improved (3) Cholelithiasis: Code(s): K80.20 - Calculus of gallbladder without cholecystitis without obstruction Status: Acute Assessment and Plan: pending hida scan (4) Gastritis: Code(s): K29.70 - Gastritis, unspecified, without bleeding Status: Acute Assessment and Plan: medical treatment pending biopsies (5) Status post repair of paraesophageal diaphragmatic hernia: Code(s): Z98.890 - Other specified postprocedural states; Z87.19 - Personal history of other diseases of the digestive system Status: Acute Subjective Date/time seen: 04/18/23 11:38 Interval history: egd found erosive gastritis yesterday pain has improved and feeling more comfortable just completed hida scan Review of Systems Review of Systems: All systems reviewed & are unremarkable except as noted in HPI and below Exam Const: General: comfortable, no acute distress and awake Nutritional Appearance: average body habitus Orientation/consciousness: patient oriented x3 HENMT: Head: normocephalic and atraumatic Ears: hearing grossly normal bilaterally Eyes: General: appearance normal, both eyes and all related structures Pupils: Equal, round and reactive pupils present Neck: Neck: normal visual inspection and full ROM Resp: Effort & Inspection: no respiratory distress Auscultation: clear to auscultation bilaterally Cardio: Rate: regular rate Rhythm: regular rhythm GI: Inspection: non-distended GI Palp: Yes Soft to palpation, Yes Tenderness to palpation present (GI) (less tender today in epigastric), No Guarding due to palpation present (GI) and No Rebound tenderness present Auscultation: normal bowel sounds Skin: General skin exam: normal color Rashes: no rashes Neuro: General: moves all extremities and no focal motor deficits Speech: normal speech Motor exam (neuro): 5/5 motor strength present throughout Extrem: General: normal to inspection and no edema Psych: Mental Status: mental status grossly normal Affect: normal affect Attitude: cooperative Insight: Good insight present (Psych) Judgement: Good judgement present (Psych) Objective Data Vital Signs Vital Signs: Vital Signs - 24 hr 04/17/23 12:23 04/17/23 12:33 04/17/23 12:43 Temperature Pulse Rate 99 90 87 Respiratory Rate 19 20 15 Blood Pressure 132/94 H 142/98 H 154/96 H Pulse Oximetry 100 100 100 Oxygen Delivery Room Air Room Air Room Air 04/17/23 13:56 04/17/23 21:16 04/17/23 20:00 Temperature 98.5 F 98.6 F Pulse Rate 82 104 H 104 H Respiratory Rate 15 20 20 Blood Pressure 128/82 165/90 H Pulse Oximetry 100 100 100 Oxygen Delivery Room Air 04/18/23 05:44 04/18/23 08:00 Temperature 96.8 F L Pulse Rate 88 Respiratory Rate 20 Blood Pressure 160/100 H Pulse Oximetry 100 Oxygen Delivery Room Air Intake/Output Intake/Output: Intake & Output 04/15/23 04/16/23 04/17/23 04/18/23 23:59 23:59 23:59 23:59 Intake Total 100 1520 890 640 Balance 100 1520 890 640 Meds/Results Medications: Active Medications Generic Name Dose Route Start Last Admin Trade Name Freq PRN Reason Stop Dose Admin Acetaminophen 1,000 mg 04/17/23 09:46 04/18/23 04:24 Acetaminophen 500 Mg Tablet PO 1,000 mg Q6H PRN Administration Mild Pain (1-3) or Fever Hydrocodone Bitart/Acetaminophen 1 tab 04/16/23 11:12 04/17/23 08:08 Hydrocodone/Acetaminophen (*Crx) 5-325 Mg Tablet PO 1 tab Q4H PRN Administration Pain Rated 6 or Greater Atorva
[2023-04-18] MEDS: SPIRONOLACTONE 50 MG TABLET 100 MG PO (12:25)
[2023-04-18] MEDS: ATORVASTATIN 20 MG TABLET PO (12:25)
[2023-04-18] MEDS: VENLAFAXINE HCL XR 75 MG CAP.ER.24H PO (12:25)
--- NOTE | 2023-04-18 12:51 | PM.PNGS ---
Progress Note: A&P Assessment and Plan (1) Cholelithiasis: Code(s): K80.20 - Calculus of gallbladder without cholecystitis without obstruction Status: Acute Assessment and Plan: HIDA scan showed low gallbladder EF of 21% more c/w gallbladder dysfunction or chronic cholecystitis. Discussed the results with the patient. This would not account for her persistent acute abdominal pain. Okay from our standpoint to discharge her on a low fat diet. Discussed with the patient that she can follow-up as an outpatient if she wishes to consider a cholecystectomy. (2) Abdominal pain, epigastric: Code(s): R10.13 - Epigastric pain Status: Acute (3) Elevated LFTs: Code(s): R79.89 - Other specified abnormal findings of blood chemistry Status: Acute Plan I have discussed the patient's case and plan of care with Dr. Anderson. Subjective Subjective Date/Time Seen: 04/18/23 12:51 Patient reports: no new complaints, feels better, pain is less, tolerating liquids well and flatus Interval history: Patient feeling better today. Her abdominal pain has improved. EGD showed gastritis. Started on PPI. Tolerating her diet. Exam Const: General: comfortable and no acute distress Orientation/consciousness: patient oriented x3 GI: Inspection: non-distended GI Palp: Yes Soft to palpation, No Tenderness to palpation present (GI), No Guarding due to palpation present (GI) and No Rebound tenderness present Auscultation: normal bowel sounds Objective Data Vital Signs Vital Signs: Vital Signs - 24 hr 04/17/23 13:56 04/17/23 21:16 04/17/23 20:00 Temperature 98.5 F 98.6 F Pulse Rate 82 104 H 104 H Respiratory Rate 15 20 20 Blood Pressure 128/82 165/90 H Pulse Oximetry 100 100 100 Oxygen Delivery Room Air 04/18/23 05:44 04/18/23 08:00 Temperature 96.8 F L Pulse Rate 88 Respiratory Rate 20 Blood Pressure 160/100 H Pulse Oximetry 100 Oxygen Delivery Room Air Intake/Output Intake/Output: Intake & Output 04/15/23 04/16/23 04/17/23 04/18/23 23:59 23:59 23:59 23:59 Intake Total 100 1520 890 640 Balance 100 1520 890 640 Meds/Results Medications: Active Medications Generic Name Dose Route Start Last Admin Trade Name Freq PRN Reason Stop Dose Admin Acetaminophen 1,000 mg 04/17/23 09:46 04/18/23 04:24 Acetaminophen 500 Mg Tablet PO 1,000 mg Q6H PRN Administration Mild Pain (1-3) or Fever Hydrocodone Bitart/Acetaminophen 1 tab 04/16/23 11:12 04/17/23 08:08 Hydrocodone/Acetaminophen (*Crx) 5-325 Mg Tablet PO 1 tab Q4H PRN Administration Pain Rated 6 or Greater Atorvastatin Calcium 20 mg 04/16/23 12:00 04/18/23 12:25 Atorvastatin 20 Mg Tablet PO 20 mg DAILY@1200 ROLANDO Administration Hydralazine HCl 10 mg 04/17/23 08:30 Hydralazine Hcl 20 Mg/Ml Vial IV PUSH Q6HR PRN Blood Pressure - High Morphine Sulfate 2 mg 04/15/23 19:55 04/18/23 10:10 Morphine Sulfate (*Crx) 2 Mg/Ml Inj IV PUSH 2 mg Q4H PRN Administration Pain Rated 7-10 Ondansetron HCl 4 mg 04/15/23 15:42 Ondansetron Inj 4 Mg/2 Ml Vial IV PUSH Q4H PRN Nausea Pantoprazole Sodium 40 mg 04/15/23 21:00 04/18/23 09:49 Pantoprazole Sodium Iv 40 Mg Vial IV PUSH 40 mg Q12HR ROLANDO Administration Spironolactone 100 mg 04/16/23 12:00 04/18/23 12:25 Spironolactone 50 Mg Tablet PO 100 mg DAILY@[facility] Administration Venlafaxine HCl 75 mg 04/16/23 12:00 04/18/23 12:25 Venlafaxine Hcl Xr 75 Mg Cap.Er.24h PO 75 mg DAILY@[facility] Administration Radiology Results: ITS Impressions Abdomen Ultrasound 04/15/23 13:44 IMPRESSION: 1. Cholelithiasis. No gallbladder dilation, wall thickening or sonographic Badillo's sign to suggest acute cholecystitis. Chest X-Ray 04/15/23 13:57 IMPRESSION: 1. Small sliding hiatal hernia. Abdomen/Pelvis CT 04/15/23 14:30 Impression: Cholelithiasis. Small
[2023-04-18 13:32] VITALS: BP 117/79; PULSE 101; RESP 17; TEMP 37.2; O2SAT 100
--- NOTE | 2023-04-18 14:20 | PM.DS ---
DS: Admitting Diagnosis Discharge Date 04/18/23 Admitting Diagnosis abdominal pain DS: Discharge Diagnosis Discharge Diagnosis (1) Intractable abdominal pain: Code(s): R10.9 - Unspecified abdominal pain Status: Acute Assessment and Plan: Abdominal pain for 5+ days, epigastric in nature US with gallstones but no signs of acute cholecystitis Surgery consulted, HIDA scan ordered for 04/18 GI consulted, EGD today findings of erosive gastritis (2) Anxiety and depression: Code(s): F41.9 - Anxiety disorder, unspecified; F32.A - Depression, unspecified Status: Acute Assessment and Plan: Patient very anxious, moderately dysthymic, somewhat uncooperative with plan of care because she states I am just too frustrated. Patient has already threatened to leave against medical advice because she did not feel like she was being tended to enough. (3) Hyperlipidemia: Code(s): E78.5 - Hyperlipidemia, unspecified Status: Acute Assessment and Plan: Continue home medications Lipid panel; Triglycerides 122, Total cholesterol 161, LDL 84, HDL 41 (4) Elevated LFTs: Code(s): R79.89 - Other specified abnormal findings of blood chemistry Status: Acute Assessment and Plan: minimal elevations that of improved since admission AST 46, ALT 66, Alkaline phosphatase 132 (5) Abnormal urinalysis: Code(s): R82.90 - Unspecified abnormal findings in urine Status: Acute Assessment and Plan: Patient treated for urinary tract infection with ceftriaxone. Urine culture negative, no growth. Stopping antibiotics. Plan Advance diet to low fiber, bland today GI and general surgery consults. Pending HIDA scan 04/18. DS: Summary Hospital Course Hospital Course: HPI obtained from chart, This is a 57-year-old female with history of periesophageal hernia repair requiring 4 separate surgery due to complications, diverticulitis, hyperlipidemia, depression, and anxiety who presented to the emergency department via private vehicle from home for evaluation of abdominal pain. The patient provides the following history. For the last 4 days or so she has had pain in the upper abdomen and epigastric region associated with nausea. She describes a constant, dull but significant aching discomfort without significant radiation.? She has not noticed any aggravating or alleviating factors and states that is not made better or worse with food.? Her appetite has not been great however and she has not had much to eat for 3 days.? Her last bowel movement was on Saturday and was normal for her. She also reports a subjective fever in addition to nausea.? She has not had any vomiting. She was seen emergency department [facility] last night at which time she reportedly had a negative workup including a negative CT scan. Her symptoms have not improved and she came into this facility for evaluation. Vital signs were stable on arrival. Labs were pretty unremarkable with the only outlier is being a sodium of 135, AST 40, ALT 69, and alkaline phosphatase 134. Urine was positive for 1+ ketones, 2+ leukocyte esterase, 51 to 100 WBCs; no bacteria were seen on microscopy. Right upper quadrant ultrasound showed cholelithiasis without other concerning findings. CT of the abdomen and pelvis showed cholelithiasis and a small to moderate hiatal hernia. In the ED she was treated with famotidine, morphine, ondansetron, and a GI cocktail. Unfortunately she continues to have ongoing cramping pain and she is being admitted in this setting for further evaluation. She has not had a fever for couple of days and denies headache, sinus congestion, cough, hematemesis, melena, and hematochezia. She has no history of peptic ulcers. Her symptoms are not similar to GERD or diverticulitis. She has known cholelithiasis but they have never caused her any problems. She drinks 1 cup of coffee a day. She drinks alcohol on
[2023-04-18] MEDS: HYDROcodone/acetaminophen (*CRX) 5-325 MG TABLET 1 TAB PO (15:32)
== END 2023-04-18 15:40 | disposition home or self-care (01) | DRG 241 ==
LOC: ANHED 15:51 → ANH3MEDSUR 16:35
PROVIDERS: Internal Medicine Gastroenterology; Nurse Practitioner; Admitting Provider Hospitalist; Emergency Provider Preventive Medicine Aerospace Medicine; PCP Internal Medicine; Visit Provider Nurse Practitioner Acute Care
PROC: 0DJ08ZZ Inspection of Upper Intestinal Tract, Via Natural or Artificial Opening Endoscopic (ICD-10-PCS; CPT 43235; principal; 2023-04-17 13:15)
DX: K29.00 Acute gastritis without bleeding (principal); K80.10 Calculus of gallbladder with chronic cholecystitis without obstruction; D64.9 Anemia, unspecified; E78.5 Hyperlipidemia, unspecified; K44.9 Diaphragmatic hernia without obstruction or gangrene; F32.A Depression, unspecified; F41.9 Anxiety disorder, unspecified; R79.89 Other specified abnormal findings of blood chemistry; Z98.84 Bariatric surgery status
CPT/HCPCS: 36415; 71046; 74177; 76705; 78226; 80048; 80053; 80061; 80076; 81001; 83605; 83690; 83735; 84484; 85025; 87086; 88305; 93005; 96361; 96374; 96375; 96376; 99285; A9270; A9537; C9113; G0378; G0379; J2270; J2704; J7030; J7120; Q9967